=== PATIENT | female | born 1950 | race Caucasian/White ===

== ENCOUNTER 2019-08-20 16:07 | Inpatient (IN) ==
[~2019-08-20 16:07] MED LIST: VERSED ONE
--- NOTE | 2019-08-20 16:23 | PROVIDER DOCUMENTATION ---
HPI-Neurological Disorder - General Chief Complaint: Stroke-Like Symptoms Stated Complaint: STROKE LIKE SYMPTOMS Time Seen by Provider: 08/20/19 16:14 Source: patient, family, EMS Allergies/Adverse Reactions: Patient Allergies Allergy/AdvReac Type Severity Reaction Status Date / Time codeine Allergy Unknown Verified 08/20/19 16:07 Home Medications: Home Medication List Medication Instructions Recorded Confirmed Last Taken Type Acebutolol [Sectral] 1 cap PO DAILY 08/20/19 08/20/19 08/20/19 08:00 History Acetaminophen 2 tab PO Q4H PRN PRN 08/20/19 08/20/19 Unknown History Carbamazepine 1 tab PO TID 08/20/19 08/20/19 08/20/19 08:00 History Cholecalciferol (Vitamin D3) 50,000 unit PO DIRECTED 08/20/19 08/20/19 Unknown History [Vitamin D3] Clonazepam 1 tab PO BID PRN 08/20/19 08/20/19 Unknown History Escitalopram [Lexapro] 2 tab PO DAILY 08/20/19 08/20/19 08/20/19 08:00 History Gabapentin 2 cap PO DAILY 08/20/19 08/20/19 08/20/19 08:00 History Hydroxychloroquine [Plaquenil] 1.5 tab PO DAILY 08/20/19 08/20/19 08/20/19 08:00 History Levetiracetam 1 tab PO BID 08/20/19 08/20/19 08/20/19 08:00 History Melatonin 1 tab PO HS PRN 08/20/19 08/20/19 Unknown History Menthol/Zinc Oxide Ointment 1 dose TOP DAILY PRN 08/20/19 08/20/19 Unknown History [Calmoseptine Ointment] Morphine E.r. [Ms Contin] 1 tab PO BID 08/20/19 08/20/19 Unknown History Morphine Ir 1 tab PO Q4-6H PRN PRN 08/20/19 08/20/19 Unknown History Pantoprazole Sodium [Protonix] 40 mg PO DAILY 08/20/19 08/20/19 Unknown History - History of Present Illness-Neuro Nature of Presenting Problem: 69 yr old F, with hx of HTN, presenting with her daughter after sudden onset of left sided weakness, and focalized tremors to the left side of the face. Pt's recent hx includes a two week stay in the hospital for similar symptoms, with a 2 wk stint in rehab - pt was d/c on Aug 12, and had been doing well at home until today, when about an hour prior to arrival, suddenly loss use of the left side of her body, and started having twitching of the face. Pt did not lose conscious, no tongue biting, no slurred speech; she did complain of a headache, and has been complaining of headache for the past week. Headache Location: reports: frontal Severity: reports: moderate Onset/Duration: reports: 1 hour ago Timing: reports: still present Context: reports: seizure activity Character of Altered Mental Status: reports: N/A Any recent trauma/injury?: reports: none Character of Deficits: reports: new weakness, decreased ability to stand New weakness or altered sensation location:: reports: LUE, LLE, left facial Cognitive Baseline: alert, oriented x3 Gait Baseline: uses a cane Similar Symptoms Previously?: Yes Recently seen or treated by another doctor?: Yes - Seizure First time to have a seizure?: No Witnessed seizure?: Yes Preceding symptoms/context:: none Character of Seizure: reports: shaking in one area Post-ictal Symptoms: reports: headache Review of Systems - Adult - REVIEW OF SYSTEMS - ADULT Constitutional: reports: no symptoms reported Eyes: reports: no symptoms reported Ears, Nose, Mouth & Throat: reports: no symptoms reported Cardiovascular: reports: no symptoms reported Respiratory: reports: no symptoms reported Gastrointestinal: reports: no symptoms reported Genitourinary: reports: no symptoms reported Musculoskeletal: reports: see HPI Integumentary: reports: no symptoms reported Neurological: reports: see HPI Psychiatric: reports: no symptoms reported Endocrine: reports: no symptoms reported Past History - Adult - PAST MEDICAL HISTORY-ADULT Review of Records: reports: Old Records Reviewed, Nursing Assessment Review Cardiovascular: reports: HTN Neurological: reports: stroke deficits - PRIOR SURGERIES/PROCEDURES Surgical/Procedure History: reports: reviewed, not pertinent - FAMILY HISTORY Family History: reviewed, not pertinent - SOCIAL HISTORY Living Situation: family Physical Exam- Neurological - Physical Exam-Neuro Initial Vital Signs Reviewed: Yes General Appearance: alert, mild distress Eye Exam: bilateral eye: PERRL, EOMI HENMT: normocephalic/atraumatic, moist mucous membranes Head Injury: no evidence of injury Respiratory: chest non-tender, lungs clear Cardiovascular: regular rate, rhythm Abdominal Exam: normal bowel sounds, non tender, soft sales estimator Exam: PERRL. negative: abnormal speech, facial droop, tongue deviation to R, tongue deviation to L Coordination/Gait: other (pt unable to stand at the time of examination) Motor/Sensory: no sensory deficit, weak motor strength LUE Neurologic: focal weakness. negative: facial droop, sensory deficit Integumentary: normal color, normal turgor, warm/dry Psych/Mental Status: normal mood/affect, oriented x 3 - Glascow Coma Scale Best Eye Response: (4) open spontaneously Best Verbal Response: (5) oriented Best Motor Response: (6) obeys commands Progress - PLAN OF CARE/RESULTS Progress/Plan/Lab Results: Vital Signs - 8 hr 08/20/19 16:37 08/20/19 17:10 08/20/19 17:50 Temperature 97.9 F Pulse Rate 94 H 98 H 96 H Respiratory Rate 19 21 26 H Blood Pressure 211/132 201/106 179/124 O2 Sat by Pulse Oximetry 95 96 94 L 08/20/19 17:57 08/20/19 18:00 08/20/19 18:01 Temperature Pulse Rate 95 H 79 78 Respiratory Rate 27 H 18 18 Blood Pressure 235/145 140/106 O2 Sat by Pulse Oximetry 93 L 93 L 93 L 08/20/19 18:03 08/20/19 18:24 08/20/19 18:32 Temperature Pulse Rate 76 74 74 Respiratory Rate 21 14 16 Blood Pressure 190/94 203/121 208/108 O2 Sat by Pulse Oximetry 95 95 96 08/20/19 18:58 08/20/19 19:02 08/20/19 19:03 Temperature Pulse Rate 77 79 78 Respiratory Rate 23 17 14 Blood Pressure 199/124 212/192 203/130 O2 Sat by Pulse Oximetry 96 94 L 94 L 08/20/19 19:32 Temperature Pulse Rate 76 Respiratory Rate 12 Blood Pressure 190/130 O2 Sat by Pulse Oximetry 94 L Laboratory Results - last 24 hr 08/20/19 08/20/19 08/20/19 16:30 16:30 16:30 WBC 5.29 RBC 3.64 L Hgb 11.9 L Hct 37.4 MCV 102.7 H MCH 32.7 H MCHC 31.8 L RDW Std Deviation 17.6 H Plt Count 276 MPV 9.8 Immature Gran % (Auto) 0.0 Neut % (Auto) 74.3 Lymph % (Auto) 15.9 L [place] % (Auto) 7.9 Eos % (Auto) 1.5 Baso % (Auto) 0.4 Immature Gran # (Auto) 0.00 Neut # (Auto) 3.93 Lymph # (Auto) 0.84 L [place] # (Auto) 0.42 Eos # (Auto) 0.08 Baso # (Auto) 0.02 PT INR PTT (Act[place] FS) Sodium 139 Potassium 4.5 Chloride 100 Carbon Dioxide 28 Anion Gap 11 BUN 14 Creatinine 0.5 Estimated GFR/1.73 m2 > 60 BUN/Creatinine Ratio 28 Glucose 127 H Calculated Osmolality 280 Calcium 8.9 Total Bilirubin < 0.15 L AST 17 ALT 17 Alkaline Phosphatase 144 H Creatine Kinase 48 Troponin T High Sens Total Protein 6.1 L Albumin 3.5 Globulin 2.6 Albumin/Globulin Ratio 1.3 Plasma Lactate Urine Source Urine Color Urine Turbidity Urine pH Ur Specific [place] Urine Protein Ur Glucose (Stick) Ur Ketones (Stick) Urine Blood Urine Nitrite Urine Bilirubin Urobilinogen Dipstick Urine Leukocytes Urine WBC (Auto) Urine RBC (Auto) U Epithel Cells (Auto) Urine Bacteria (Auto) Urine Opiates Screen Ur Oxycodone Screen Ur Methadone, Qual Ur Barbiturates Screen Ur Phencyclidine Scrn Ur Amphetamines Screen U Benzodiazepines Scrn Urine Cocaine Screen U Cannabinoids Screen Plasma/Serum Ethyl Alc 08/20/19 08/20/19 08/20/19 16:30 16:30 16:48 WBC RBC Hgb Hct MCV MCH MCHC RDW Std Deviation Plt Count MPV Immature Gran % (Auto) Neut % (Auto) Lymph % (Auto) [place] % (Auto) Eos % (Auto) Baso % (Auto) Immature Gran # (Auto) Neut # (Auto) Lymph # (Auto) [place] # (Auto) Eos # (Auto) Baso # (Auto) PT 13.0 INR 0.97 PTT (Actin FS) 32.5 Sodium Potassium Chloride Carbon Dioxide Anion Gap BUN Creatinine Estimated GFR/1.73 m2 BUN/Creatinine Ratio Glucose Calculated Osmolality Calcium Total Bilirubin AST ALT Alkaline Phosphatase Creatine Kinase Troponin T High Sens 32 H Total Protein Albumin Globulin Albumin/Globulin Ratio Plasma Lactate 1.0 Urine Source Urine Color Urine Turbidity Urine pH Ur Specific [place] Urine Protein Ur Glucose (Stick) Ur Ketones (Stick) Urine Blood Urine Nitrite Urine Bilirubin Urobilinogen Dipstick Urine Leukocytes Urine WBC (Auto) Urine RBC (Auto) U Epithel Cells (Auto) Urine Bacteria (Auto) Urine Opiates Screen Ur Oxycodone Screen Ur Methadone, Qual Ur Barbiturates Screen Ur Phencyclidine Scrn Ur Amphetamines Screen U Benzodiazepines Scrn Urine Cocaine Screen U Cannabinoids Screen Plasma/Serum Ethyl Alc 08/20/19 08/20/19 16:50 16:50 WBC RBC Hgb Hct MCV MCH MCHC RDW Std Deviation Plt Count MPV Immature Gran % (Auto) Neut % (Auto) Lymph % (Auto) [place] % (Auto) Eos % (Auto) Baso % (Auto) Immature Gran # (Auto) Neut # (Auto) Lymph # (Auto) [place] # (Auto) Eos # (Auto) Baso # (Auto) PT INR PTT (Actin FS) Sodium Potassium Chloride Carbon Dioxide Anion Gap BUN Creatinine Estimated GFR/1.73 m2 BUN/Creatinine Ratio Glucose Calculated Osmolality Calcium Total Bilirubin AST ALT Alkaline Phosphatase Creatine Kinase Troponin T High Sens Total Protein Albumin Globulin Albumin/Globulin Ratio Plasma Lactate Urine Source CATH Urine Color YELLOW Urine Turbidity CLEAR Urine pH 7.0 Ur Specific [place] 1.012 Urine Protein TRACE A Ur Glucose (Stick) NEGATIVE Ur Ketones (Stick) NEGATIVE Urine Blood NEGATIVE Urine Nitrite NEGATIVE Urine Bilirubin NEGATIVE Urobilinogen Dipstick NORMAL Urine Leukocytes NEGATIVE Urine WBC (Auto) <10 Urine RBC (Auto) <10 U Epithel Cells (Auto) <10 Urine Bacteria (Auto) NEGATIVE Urine Opiates Screen PRESUMPTIVE POSITIVE A Ur Oxycodone Screen NONE DETECTED Ur Methadone, Qual NONE DETECTED Ur Barbiturates Screen NONE DETECTED Ur Phencyclidine Scrn NONE DETECTED Ur Amphetamines Screen NONE DETECTED U Benzodiazepines Scrn NONE DETECTED Urine Cocaine Screen NONE DETECTED U Cannabinoids Screen NONE DETECTED Plasma/Serum Ethyl Alc Orders Category Date Time Status [facility] Cath Insertion ORDERED Care 08/20/19 17:47 Active Nursing- Obtain EKG once Care 08/20/19 16:[address] HEAD W/O CONTRAST [CT] Stat Exams 08/20/19 16:15 Completed ALCOHOL BLOOD Stat Lab 08/20/19 16:30 Completed CBC WITH ELECTRONIC DIFF [HEME] Stat Lab 08/20/19 16:30 Completed CK PROFILE [SP CHEM] Stat Lab 08/20/19 16:30 Completed COMPREHENSIVE METABOLIC PANEL [CHEM] Stat Lab 08/20/19 16:30 Completed KEPPRA [FELIX] Stat Lab 08/20/19 16:30 Received LACTATE, PLASMA [CHEM] Stat Lab 08/20/19 16:48 Completed PT [PROTIME WITH INR] [COAG] Stat Lab 08/20/19 16:30 Completed PTT [COAG] Stat Lab 08/20/19 16:30 Completed TROPONIN T HIGH SENSITIVITY Stat Lab 08/20/19 16:30 Completed URINALYSIS W/POSS RFLX CULT [URINALYSIS] Stat Lab 08/20/19 16:50 Completed URINE DRUG SCREEN Stat Lab 08/20/19 16:50 Completed Acetaminophen [Tylenol] Med 08/20/19 20:24 Discontinued 1,000 mg PO NOW ONE Ketorolac [Toradol] Med 08/20/19 16:57 Discontinued 30 mg IV NOW ONE Labetalol Med 08/20/19 20:24 Discontinued 10 mg IV NOW ONE Labetalol Med 08/20/19 16:58 Discontinued 20 mg IV NOW ONE Metoclopramide [Reglan] Med 08/20/19 16:57 Discontinued 10 mg IV NOW ONE Midazolam [Versed] Med 08/20/19 16:02 Discontinued 2 mg .SEE ORDER NOW ONE Ondansetron [Zofran] Med 08/20/19 18:49 Discontinued 8 mg IV NOW ONE Prochlorperazine [Compazine] Med 08/20/19 19:18 Discontinued 10 mg IV NOW ONE EKG [EKG] Stat Ther 08/20/19 16:44 Draft Pt's lab evaluation and imaging are mostly unremarkable - there are no acute abnormalities; the pt's BP has not responded to labetalol or pain control, no r has her headache improved; given her recent hx and uncontrolled BP, pt will at least benefit from overnight control of the hypertensive urgency; spoke with the hospitalist who agrees to admit; pt and family made aware of the plan. Result Diagrams: 08/20/19 16:30 08/20/19 16:30 - EKG 1 Time of EKG reading by physician:: 19:00 EKG Read and Signed by:: Boy Seymour EKG Interpretation (*Must complete 3 of following elements*): Abnormal Rate: 75 Rhythm: sinus rhythm [place]: normal QRS: normal NM Interval: normal ST Wave: non-specific ST changes (t wave inversions, V1. V2, V3) - CT/MRI 1 CT Study: Head Impression: See EMR Report CT Results: no acute intracranial abnormalities - CONSULTS/PCP/HOSPITALIST Notification #1 *Consult/PCP/Hospitalist*: Dr. Melissa Time Discussed: 19:00 Consult Disposition: Admit Departure - Departure Date of Disposition Decision: 08/20/19 Time of Disposition Decision: 20:34 DIAGNOSIS: Hypertensive urgency Disposition: ADMITTED INPATIENT 09 Certified Medical Emergency: Emergent Condition: Stable Referrals and Follow-Ups: None,PCP [Primary Care Provider] - - Critical Care Note This patient required my direct & personal management of CC.: No Attestation - Physician/ TESFAYE Attestation Patient care was provided by Advanced Practice Provider:: No The physician spent face to face time with patient:: Yes Advanced Practice Provider documentation review:: Supervising physician onsite and consulted in the evaluation and care of this patient. The physician did have a face to face encounter with the patient.
[2019-08-20] MEDS ORDERED: TORADOL IV ONE (16:57)
[2019-08-20] MEDS ORDERED: REGLAN IV ONE (16:57)
[2019-08-20] MEDS ORDERED: LABETALOL IV ONE ×2 (16:58→20:24)
[2019-08-20 17:03] LABS: BASO# 0.02 X1000 (0.0-0.2); BASO% 0.4 % (0.0-0.8); EOS# 0.08 X1000 (0.0-0.7); EOS% 1.5 % (0.0-10.0); HEMATOCRIT 37.4 % (37.0-47.0); HEMOGLOBIN 11.9 g/dL (12.0-16.0); LYMPH# 0.84 X1000 (1.2-3.4); LYMPH% 15.9 % (20.5-51.1); MCH 32.7 PG (27-31); MCHC 31.8 g/dL (33-37); MCV 102.7 FL (81-99); MONO# 0.42 X1000 (0.11-0.59); MONO% 7.9 % (1.7-9.3); MPV 9.8 FL (7.4-10.4); NEUT# 3.93 X1000 (1.4-6.5); NEUT% 74.3 % (42.2-75.2); PLT 276 X1000 (130-400); RBC 3.64 XMIL (4.2-5.4); RDW 17.6 % (11.5-14.5); WBC 5.29 X1000 (4.8-10.8)
[2019-08-20 17:09] LABS: INR 0.97
[2019-08-20 17:10] LABS: PTT 32.5 Seconds (22.3-41.8)
[2019-08-20 17:16] LABS: URINE SOURCE CATH
[2019-08-20 17:21] LABS: BILIRUBIN URINE NEGATIVE (NEGATIVE); BLOOD URINE NEGATIVE (NEGATIVE); COLOR YELLOW; GLUCOSE URINE NEGATIVE (NEGATIVE); KETONE URINE NEGATIVE (NEGATIVE); LEUKOCYTES URINE NEGATIVE (NEGATIVE); NITRITE URINE NEGATIVE (NEGATIVE); PROTEIN URINE TRACE mg/dL (NEGATIVE); SP GRAVITY URINE 1.012; TURBIDITY URINE CLEAR (CLEAR); UR EPITHELIAL CELLS <10 /HPF (<10); URINE BACTERIA NEGATIVE /HPF; URINE RBC <10 /HPF (<10); URINE WBC <10 /HPF (<10); UROBILINOGEN URINE NORMAL (NORMAL)
[2019-08-20 17:24] LABS: AGAP 11; ALB/GLOB RATIO 1.3; ALBUMIN 3.5 g/dL (3.5-5.0); ALKALINE PHOSPHATASE 144 U/L (32-104); BUN 14 mg/dL (8-22); CALCIUM 8.9 mg/dL (8.8-10.2); CHLORIDE 100 mmol/L (98-107); CK PROFILE 48 U/L (24-173); COSMO 280; CREATININE 0.5 mg/dL (0.5-0.9); ESTIMATED GFR > 60; GLUCOSE 127 mg/dL (70-104); GOT 17 U/L (10-30); GPT 17 U/L (10-36); POTASSIUM 4.5 mmol/L (3.5-5.1); SODIUM 139 mmol/L (136-145); TCO2 28 mmol/L (25-35); TOTAL BILIRUBIN < 0.15 mg/dL (0.20-1.00); TOTAL PROTEIN 6.1 g/dL (6.3-8.3)
[2019-08-20 17:43] LABS: UR AMPHETAMINES QUAL NONE DETECTED (NONE DETECT); UR BARBITUATES QUAL NONE DETECTED (NONE DETECT); UR BENZODIAZEPIN QUAL NONE DETECTED (NONE DETECT); UR CANNABINOIDS QUAL NONE DETECTED (NONE DETECT); UR COCAINE QUAL NONE DETECTED (NONE DETECT); UR METHADONE QUAL NONE DETECTED (NONE DETECT); UR OPIATES QUAL PRESUMPTIVE POSITIVE (NONE DETECT); UR OXYCODONE QUAL NONE DETECTED (NONE DETECT); UR PCP QUAL NONE DETECTED (NONE DETECT)
--- NOTE | 2019-08-20 18:04 | Diag Imaging Result Doc PS360 ---
CT HEAD W/O CONTRAST - 08/20/2019 INDICATION: Left sided weakness and tremors COMPARISON: None FINDINGS: There is mild periventricular white matter chronic microvascular ischemia. The ventricles and sulci are normal in size and contour. No intracranial mass or hemorrhage. There is advanced vascular calcification of the carotid siphons bilaterally indicating arterial disease. The sinuses are clear. IMPRESSION: No acute process. This exam was performed using automated exposure control, adjustment of mA or kV according to patient size, and/or use of iterative reconstruction technique Electronically signed by Reg Lomeli 08/20/2019 6:01 PM
--- NOTE | 2019-08-20 18:25 | EKG Report ---
Test Performed on : 08/20/2019 6:20:51 PM Test Reason : Seizure Activity Blood Pressure : / mmHG Vent. Rate : 075 BPM Atrial Rate : 075 BPM P-R Int : 160 ms QRS Dur : 090 ms QT Int : 414 ms P-R-T Axes : 054 041 -18 degrees QTc Int : 462 ms Normal sinus rhythm. T wave abnormality, consider anterior ischemia Abnormal ECG No previous ECGs available Unconfirmed Result
[2019-08-20] MEDS ORDERED: ZOFRAN IV ONE (18:49)
[2019-08-20] MEDS ORDERED: COMPAZINE IV ONE (19:18)
[2019-08-20] MEDS ORDERED: TYLENOL PO ONE (20:24)
[2019-08-20] MEDS ORDERED: LABETALOL IV PRN (21:50)
[2019-08-20] MEDS ORDERED: CARDENE 40 MG/NS 40 MG/200 ML PIGGYBACK IV SCH (22:00)
[2019-08-20] MEDS ORDERED: MELATONIN PO PRN (22:14)
[2019-08-20] MEDS ORDERED: KLONOPIN PO PRN (22:14)
[2019-08-20] MEDS ORDERED: LIPITOR PO SCH (22:15)
[2019-08-21] MEDS: TEGRETOL PO SCH ×3 (00:25→21:17)
[2019-08-21] MEDS: COREG PO SCH ×2 (00:25→08:29)
[2019-08-21] MEDS: KEPPRA PO SCH ×2 (00:25→08:30)
[2019-08-21 05:44] LABS: HEMOGLOBIN A1C 4.7 % (4.8-6.0)
[2019-08-21 05:53] LABS: CHOLESTEROL 178 mg/dL (0-200); HDL 90 mg/dL (45-65); LDL 76 mg/dL; TRIGLYCERIDES 59 mg/dL (35-135); VLDL 12 mg/dL
[2019-08-21] MEDS: PROTONIX PO SCH (07:25)
[2019-08-21] MEDS ORDERED: NICODERM PATCH TD ONE (07:31)
[2019-08-21] MEDS: LOVENOX SUBQ SCH (08:28)
[2019-08-21] MEDS: PLAQUENIL PO SCH (08:29)
[2019-08-21] MEDS ORDERED: LEXAPRO PO SCH (09:00)
[2019-08-21] MEDS ORDERED: ASPIRIN PO SCH (09:00)
[2019-08-21] MEDS ORDERED: NEURONTIN PO SCH (09:00)
--- NOTE | 2019-08-21 09:34 | HISTORY AND PHYSICAL ---
CHIEF COMPLAINT: Left-sided weakness. HISTORY OF PRESENT ILLNESS: Ms. Lore Lawton is a 69-year-old female who has a history of hypertension, and presents to the hospital because of left-sided weakness of recent onset. The patient also describes having slurred speech, dizziness, as well as headaches. The patient also gives a history of having seizure activity prior to presentation. She is not exactly sure how long the seizure activity lasted. She indicates that her mom did witness the seizures. When she presented to the hospital, she had a CT scan of the brain done, which was unremarkable for any acute lesions. She was noted to have a markedly elevated blood pressure, which was as high as 220/126. The patient will now be admitted to the hospital for further management. PAST MEDICAL HISTORY: Hypertension, lupus, as well as Sjogren's syndrome. SOCIAL HISTORY: The patient smokes cigarettes. No alcohol or drug use. PAST SURGICAL HISTORY: She has had section, cholecystectomy, tonsillectomy, hysterectomy, as well as right knee surgery. ALLERGIES: She is allergic to codeine. FAMILY HISTORY: Positive for hypertension. MEDICATIONS: Include the following: Acebutolol 1 capsule daily, acetaminophen 2 tablets every 4 hours p.r.n., Calmoseptine ointment as directed, morphine 50 mg p.o. twice a day, morphine IR 15 mg every 4 to 6 hours p.r.n., carbamazepine 200 mg p.o. 3 times a day, vitamin D 50,000 units p.o. as directed, clonazepam 0.5 mg p.o. twice a day, escitalopram 10 mg 2 tablets daily, gabapentin 300 mg 2 caps daily, hydroxychloroquine 200 mg 1.5 tablets daily, Keppra 500 mg p.o. twice a day, melatonin 3 mg p.o. daily at bedtime, pantoprazole 40 mg p.o. daily. REVIEW OF SYSTEMS: Constitutional: Has fever. PARK MAINTENANCE TECHNICIAN: Headaches. Eyes: Blurred vision. ENT: No sore throat or hearing loss. Cardiovascular: No chest pain. Respiratory: The patient has shortness of breath. GI: Has some nausea with vomiting. No diarrhea. Has abdominal pain. : Has dysuria as well as urinary retention. Musculoskeletal: Has skin lesions. Hematology: No bleeding problems. Musculoskeletal: Has joint pains. Endocrinology: No thyroid disease or diabetes. Allergy/Immunology: Has symptoms of allergic rhinitis. PHYSICAL EXAMINATION: VITAL SIGNS: Pulse 71, respirations 18, blood pressure 214/106, oxygen saturation is 94%, temperature is 97.9 degrees. HEENT: She is atraumatic, normocephalic. She is anicteric. Pupils equal, poorly reactive to light. Extraocular movements intact. No oral lesions noted. NECK: No lymphadenopathy or thyromegaly. CARDIOVASCULAR: S1, S2. RESPIRATORY: Has evidence of good air entry bilaterally. ABDOMEN: Soft, nontender. No masses felt. EXTREMITIES: No evidence of edema. CENTRAL NERVOUS SYSTEM: The patient is awake, alert, well oriented. She does have left hemiparesis. IMAGING AND LABORATORY DATA: WBCs 5.29, hematocrit is 37.4, with a platelet count of 276,000. INR is 0.97. Sodium is 139, potassium 4.5, chloride is 100, bicarb is 28, BUN is 14, creatinine 0.5. CT scan of the head: No acute processes was noted. EKG shows normal sinus rhythm with T- wave abnormalities, consider anterior ischemia. ASSESSMENT AND PLAN: 1. Acute cerebrovascular accident with left hemiparesis. Will maintain the patient on aspirin as well as statin. Obtain an MRI of the brain, as well as an MRA of the head and neck. Will get a 2-dimensional echocardiogram of the heart. Recommend physical therapy, occupational therapy, speech therapy, as well as a swallow evaluation. Check lipid panel as well as a hemoglobin A1c level. Recommend tobacco use cessation, as well as Lovenox 40 mg subcutaneously once a day. Check a lipid panel. The patient needs stroke education. Consider Neurology evaluation. 2. Seizure disorder. Maintain the patient on seizure precaution. Continue antiepileptic drugs, specifically Keppra as well as carbamazepine and also Neurontin. 3. Hypertension. Allow for permissive hypertension in light of stroke. 4. History of lupus. Continue Plaquenil. 5. History of Sjogren's syndrome. Aware. Treat dry eyes and dry mouth symptomatically. 6. Urinary retention. Check urinalysis and urine culture. Place Carter temporarily. Consult with Urology. 7. Tobacco use history. Recommend nicotine patch. 8. Anemia. Check iron studies, B12, folate level, stool for occult blood. 9. Deep vein thrombosis prophylaxis. Lovenox. 10. Gastrointestinal prophylaxis. Proton pump inhibitor. cc: Madhu Melissa MD
--- NOTE | 2019-08-21 09:54 | Diag Imaging Result Doc PS360 ---
EXAM: MRI BRAIN W/WO CONTRAST 08/20/2019 HISTORY: r/o cva TECHNIQUE: T1 sagittal, axial and post gadolinium-enhanced axial with coronal reformation, T2, FLAIR, DWI axial and coronal gradient echo. COMMENT: There is extensive periventricular T2-weighted hyperintensity with some punctate and patchy areas of increased T2-weighted signal intensity particularly in the right hung radiata region. There is also increased T2-weighted signal intensity posteriorly in the right thalamus. There is considerable motion artifact on the T1-weighted images. There is no evidence of restricted diffusion. No evidence of mass effect bleed or abnormal extra-axial fluid collection is present. There is no evidence of abnormal gadolinium enhancement. IMPRESSION: Extensive chronic microvascular change. No evidence of acute disease. Electronically signed by Michael Rivera 08/21/2019 9:52 AM
--- NOTE | 2019-08-21 10:29 | Diag Imaging Result Doc PS360 ---
EXAM: MRA NECK W/O CONT 08/20/2019 HISTORY: r/o cva TECHNIQUE: 3-D [id number] COMMENT: There is no evidence of significant stenosis in the cervical common or internal carotid arteries. Both vertebral arteries appear to be patent. The basilar artery is normal in appearance. IMPRESSION: No definite abnormality. Electronically signed by Michael Rivera 08/21/2019 10:27 AM
--- NOTE | 2019-08-21 10:31 | Diag Imaging Result Doc PS360 ---
EXAM: MRA BRAIN W/O CONTRAST 08/20/2019 HISTORY: r/o cva TECHNIQUE: 3-D [id number] COMMENT: There is some motion artifact. There is no evidence of major branch occlusion. No evidence of aneurysm is present. IMPRESSION: No definite abnormality. Electronically signed by Michael Rivera 08/21/2019 10:28 AM
[2019-08-21] MEDS ORDERED: ZOFRAN IV PRN (11:36)
[2019-08-21] MEDS ORDERED: LABETALOL IV PRN (11:41)
[2019-08-21] MEDS ORDERED: KEPPRA 500 MG in NS 100 ML IV SCH (11:45)
[2019-08-21] MEDS ORDERED: VASOTEC IV SCH (11:45)
--- NOTE | 2019-08-21 12:02 | PROGRESS NOTE ---
DATE: 08/21/2019 SUBJECTIVE: Patient has no major complaints, but she is not very responsive. She is moving her extremities spontaneously. OBJECTIVE: Vital signs: Blood pressure 139/77, heart rate 73, respiratory rate 18, temperature was 98.6 degrees, but she is on a Bari Hugger. Her saturations were 88 92%, but she is on at least a couple liters of oxygen. PROBLEM LIST: 1. Transient ischemic attack versus reversible encephalopathy syndrome. She has an atypical seizure disorder which has been worked up in [place]. We are trying to get old records. Keep her on aspirin. Her MRI is negative for stroke, so I do not think this is a stroke. MRA is negative, so I am not really sure what is causing her weakness. Apparently, she has weakness associated with seizures, so I have consulted Neurology. We are going to get an EEG. Continue her Keppra, which she has had levels checked. 2. Uncontrolled hypertension. Unclear etiology. Right now, her blood pressure is okay, but we will continue medications and follow. 3. Systemic lupus erythematosus. She is on hydroxychloroquine. She also has a history of Sjogren's. We will continue to monitor closely. We will resume blood pressure medications when stable. Right now, she is not awake enough to take p.o., but hopefully that will change, and we will continue to monitor. 4. The family is requesting a cardiology consult. I think they are medically inclined as far as nursing. They were concerned because her troponin was elevated, but her troponin is not elevated, at least by our criteria here, so I am not quite sure what to say about that, but we will continue to monitor her closely. cc: Rian Grimes MD
[2019-08-21] MEDS: NITROGLYCERIN TOP SCH ×3 (12:22→23:01)
--- NOTE | 2019-08-21 14:33 | CARDIOLOGY CONSULTATION ---
DATE: 08/21/2019 REASON FOR CONSULTATION: Ms. Lawton is a 69-year-old, lady with multiple medical problems. Cardiology was consulted for blood pressure control. HISTORY OF PRESENT ILLNESS: Ms. Lawton is a 69-year-old lady, who has history of hypertension, seizure disorder. Complained of left-sided weakness. The patient has described some speech deficit as well. Has had a long-standing seizure disorder. Was in [facility] in June 2019 where she was evaluated and was admitted and discharged with the following diagnoses: 1. Encephalopathy. 2. Seizure disorder. 3. Ulcerative colitis. 4. History of SLE. 5. Anxiety disorder. 6. Urinary tract infections in the past. 7. Multiple pulmonary nodules. The patient was evaluated by Neurology and she was discharged home on acebutolol 200 mg a day, alendronate, carbamazepine, clonazepam, Lexapro, omeprazole, gabapentin, hydroxychloroquine, Keppra, Lorcet and melatonin. When she presented to the hospital, she was noted to have elevated blood pressures. Blood pressures at home had gone up to 220/126. She has undergone EEG here and was given IV ANGELA inhibitors for blood pressure control. So, blood pressures are better with that. She denies any chest pain. Main complaints have been with seizure-like symptoms which she had in the recent past. REVIEW OF SYSTEM: A 14-point review of systems was done. GI System: There is no history of nausea, vomiting or diarrhea. Cardiovascular System: Denies any chest pain. There are no palpitations. System: There is no dysuria or hematuria. PAST MEDICAL HISTORY: 1. Sjogren syndrome. 2. Lupus. 3. Ulcerative colitis. 4. Chronic pain. 5. Depression. 6. Hypertension. 7. Recent admission in [facility] with encephalopathy and seizure disorder. She also has had urinary tract infections in the past and multiple pulmonary nodules. She has been evaluated by Neurology at [facility]. Please see detailed enclosed records. PHYSICAL EXAMINATION: Vital Signs: On examination, blood pressure today was 147/65. Cardiovascular System: First and second heart sounds were heard. There was no S3 gallop. Respiratory System: Normal air entry. There are no crepitations or rhonchi. Abdomen: Soft. Central nervous system: Alert, was moving all 4 extremities. Detailed central nervous system examination not performed. ASSESSMENT AND PLAN: 1. Ms. Lawton has history of hypertension, lupus, Sjogren's, chronic pain syndrome, history of hypertension. For hypertension, we would recommend continuing with her acebutolol. She had a good response with intravenous captopril. We will start her on lisinopril 10 mg a day. 2. We will also make sure that there is no renal artery stenosis. Given recent accelerated hypertension, we will get renal duplex done. 3. We will get an echocardiogram to assess cardiac and valvular function. Thank you for the consult. We will follow hospital course. cc: Kana Napier MD
[2019-08-21] MEDS: SECTRAL PO SCH (17:32)
[2019-08-21] MEDS: PRINIVIL PO SCH (17:32)
--- NOTE | 2019-08-21 20:57 | Diag Imaging Result Doc PS360 ---
EXAM: CT THORAX W/O CONTRAST 08/21/2019 HISTORY: decreased sats TECHNIQUE: This exam was performed using automated exposure control, adjustment of mA or kV according to patient size, and/or use of iterative reconstruction technique. COMMENT: There are bilateral pleural effusions. There is coarse interstitial opacity in both lower lobes. There is no evidence of significant adenopathy. There is extensive coronary calcification. There are degenerative disc changes throughout the thoracic spine. No evidence of acute bony abnormality is present. IMPRESSION: Mild pulmonary edema and bilateral pleural effusions. Electronically signed by Michael Rivera 08/21/2019 8:53 PM
[2019-08-21] MEDS ORDERED: KEPPRA PO SCH (21:00)
[2019-08-21] MEDS: MS CONTIN PO SCH (21:16)
[2019-08-21] MEDS: KEPPRA 1,000 MG/NS 1,000 MG/100 ML IVPB IV SCH (21:16)
--- NOTE | 2019-08-21 21:24 | EEG REPORT ---
DATE: 08/21/2019 REFERRING PHYSICIAN: Rian Grimes MD TI[employer] BEADER MAKER: David Kelly BACKGROUND INFORMATION/TECHNIQUE: This is a digitally recorded portable routine EEG with video. HISTORY: A 69-year-old female patient with acute onset of left-sided weakness, slurred speech, dizziness, and headache. Mom witnessed a seizure. Blood pressure was elevated. EEG is ordered to detect evidence of seizures. MEDICATIONS: Include clonazepam, Lexapro. EEG FINDINGS: A posterior dominant alpha rhythm is not seen. The background consists of theta, delta slowing with some intermixed faster frequencies. Nearly continuous focal slowing is seen in the right hemisphere. Occasional to intermittent epileptiform discharges are also seen in the right temporal head region with maximum at T4. No seizures. Hyperventilation is not performed. Photic stimulation does not alter the record. No definite drowsiness patterns. Stage N2 sleep is not seen. EKG demonstrates regular intervals when the lead is interpretable. IMPRESSION AND CLINICAL CORRELATION: Abnormal routine EEG due to: 1. Epileptiform discharges maximal in the right mid temporal head region indicative of focal cortical irritability in this area. 2. Slowing within the right hemisphere, which may be a postictal phenomenon. Structural lesion would also be a consideration. 3. Mild to moderate generalized slowing indicative of a mild to moderate nonspecific encephalopathy. cc: MD Rian Valdes MD [facility]
[2019-08-21] MEDS: KLONOPIN PO PRN (21:31)
[2019-08-21] MEDS: MORPHINE IR PO PRN (22:17)
--- NOTE | 2019-08-21 22:54 | NEUROLOGY CONSULTATION ---
DATE: 08/21/2019 REASON FOR CONSULT: Seizure/stroke. HISTORY OF PRESENT ILLNESS: This is a 69-year-old female with history of recent-onset seizures, hypertension, lupus and Sjogren syndrome. She was admitted yesterday after she began having some confusion, and her son noticed some seizure activity with generalized shaking. I am not certain of further details regarding seizure description. There is also report of her having slurred speech, dizziness and headaches. Apparently she has had some left-sided weakness following the seizures. In June of 2019, just last month she presented to [facility] with similar symptoms of seizures. She was hypertensive. She was ultimately transferred to [place]. I believe we have requested records. Currently she is taking levetiracetam 500 mg b.i.d., as well as carbamazepine 200 mg 3 times a day, and to my knowledge she has not missed doses. Of note, she also takes clonazepam 0.5 mg b.i.d., gabapentin 600 mg a day. She was discharged to a rehab facility for 10 days and has subsequently been staying with her son. She was doing relatively well until the day of admission, when she began having more evidence of seizures and confusion. Blood pressure on arrival was 211/132. Head CT did not show acute findings. MRI of the brain also did not show acute findings, but did show extensive chronic microvascular ischemic change. MRA of the head and neck were unremarkable. PAST MEDICAL HISTORY: Includes hypertension, lupus, Sjogren syndrome, new-onset seizures 06/2019. FAMILY HISTORY: Positive for hypertension. No history of seizures. SOCIAL HISTORY: She is a current smoker. No alcohol or drugs. ALLERGIES: Listed to codeine in the chart. MEDICATIONS: Home medications were reviewed in the chart and include levetiracetam 500 mg p.o. b.i.d.; carbamazepine 200 mg p.o. t.i.d.; she also takes gabapentin 600 mg daily; clonazepam 0.5 mg p.o. b.i.d. amongst others. REVIEW OF SYSTEMS: Balance of 12 conducted and otherwise negative except that detailed in the HPI. PHYSICAL EXAMINATION: Vital signs: Afebrile. Blood pressure was above 200/100 on admission, current 122/63. Pulse 70s, respirations 16, 96% on room air. General: Ms. Lawton is supine in bed with head of bed elevated. She appears asleep. She arouses with loud voice and tactile stimulation. She is a bit groggy initially, but with more vigorous stimulation appears to more readily maintain attention. She knows where she is. She knows a distant family member. She was not oriented to timing. She followed some simple commands. HEENT: Pupils are equal, round and reactive. Gaze is conjugate. She had full lateral eye movements. Face was symmetric with equal activation. She blinks to threats. She can hear. Tongue was midline. Neurologic: Power was preserved in the limbs with the exception of the left upper extremity, grading 4-/5 of the deltoid and 4/5 to 4-/5 of the triceps, 4/5 of the biceps. Weak fiber optics engineer. She seemed to move her bilateral lower extremities equally. Reflexes were diminished throughout, symmetric. No clonus. Plantar response was silent. She responded to noxious stimuli in all extremities equally. DIAGNOSTIC DATA: Head CT was personally reviewed. No acute findings. MRI of the brain was also personally reviewed. No acute findings. There is extensive chronic microvascular ischemic change. There was no abnormal postcontrast enhancement. MRA of the head and neck were unremarkable. Routine EEG was personally reviewed, showing mild to moderate generalized slowing, right hemispheric slowing and occasional right temporal epileptiform discharges. No seizures. LABORATORY DATA: Normal white count, BUN and creatinine. Toxicology presumptive positive for opiates. Negative serum ethyl alcohol. ASSESSMENT AND PLAN: 1. Recent-onset seizure disorder. This appears to be focal onset within the right temporal head region. Imaging has been negative. Keppra level has been sent, but it appears as far as we know that she has been taking her medications as prescribed. I will increase her Keppra dose to 1 g b.i.d. Continue carbamazepine, current dose. Her focal weakness following recurrent seizure is likely a postictal Mickey paralysis, though she is still having occasional intermittent epileptiform discharges in the region. Continue seizure precautions. 2. Accelerated hypertension of uncertain etiology. Cardiology is working this up. There is plan for renal ultrasound as well. I did not see evidence of posterior reversible encephalopathy syndrome on imaging. Thank you for the consultation. Will follow. cc: Natali Comer MD
[2019-08-22] MEDS: MORPHINE IR PO PRN (02:05)
[2019-08-22] MEDS: NITROGLYCERIN TOP SCH ×2 (06:07→15:09)
[2019-08-22] MEDS: PROTONIX PO SCH (06:07)
[2019-08-22 07:18] LABS: BASO# 0.01 X1000 (0.0-0.2); BASO% 0.2 % (0.0-0.8); EOS% 1.9 % (0.0-10.0); HEMATOCRIT 35.6 % (37.0-47.0); HEMOGLOBIN 11.5 g/dL (12.0-16.0); LYMPH# 1.58 X1000 (1.2-3.4); LYMPH% 30.6 % (20.5-51.1); MCHC 32.3 g/dL (33-37); MCV 102.3 FL (81-99); MONO# 0.52 X1000 (0.11-0.59); MONO% 10.1 % (1.7-9.3); MPV 9.5 FL (7.4-10.4); NEUT# 2.95 X1000 (1.4-6.5); NEUT% 57.2 % (42.2-75.2); PLT 282 X1000 (130-400); RBC 3.48 XMIL (4.2-5.4); RDW 16.8 % (11.5-14.5); WBC 5.16 X1000 (4.8-10.8)
[2019-08-22 07:39] LABS: HEMOGLOBIN A1C 4.6 % (4.8-6.0)
[2019-08-22 07:54] LABS: IRON SATURATION 29 %; TIBC 245 ug/dL; TOTAL IRON 72 ug/dL (49-151); UNBOUND IRON 173 ug/dL (112-346)
[2019-08-22] MEDS ORDERED: MORPHINE IR PO PRN (07:55)
[2019-08-22] MEDS ORDERED: LASIX PO ONE (07:57)
[2019-08-22 08:10] LABS: FERRITIN 149 ng/mL (13-150)
[2019-08-22] MEDS: ASPIRIN EC PO SCH (08:29)
[2019-08-22] MEDS: MS CONTIN PO SCH ×2 (08:29→20:30)
[2019-08-22] MEDS: KEPPRA 1,000 MG/NS 1,000 MG/100 ML IVPB IV SCH ×2 (08:30→20:30)
[2019-08-22] MEDS: LEXAPRO PO SCH (08:30)
[2019-08-22] MEDS: TEGRETOL PO SCH ×3 (08:31→20:31)
[2019-08-22] MEDS: PLAQUENIL PO SCH (08:31)
[2019-08-22] MEDS: PRINIVIL PO SCH (08:31)
[2019-08-22] MEDS: LOVENOX SUBQ SCH (08:31)
[2019-08-22] MEDS: SECTRAL PO SCH (08:31)
[2019-08-22 08:32] LABS: AGAP 9; BUN 7 mg/dL (8-22); CHLORIDE 95 mmol/L (98-107); COSMO 264; CREATININE 0.4 mg/dL (0.5-0.9); ESTIMATED GFR > 60; GLUCOSE 90 mg/dL (70-104); POTASSIUM 4.2 mmol/L (3.5-5.1); SODIUM 133 mmol/L (136-145); TCO2 29 mmol/L (25-35)
[2019-08-22] MEDS ORDERED: ASPIRIN PR SCH (09:00)
--- NOTE | 2019-08-22 09:51 | PROGRESS NOTE ---
DATE: 08/22/2019 INTERVAL HISTORY: No acute events overnight. SUBJECTIVE: Ms. Lawton denies any complaints. She told me that she came to the hospital because of seizure. She states that she is experiencing headache on the right temporal side. She says this was first-time seizure episode though. VITALS: Temperature 98.6 degrees pulse 74, respiratory 18, blood pressure 150/89 saturating 96% on 2 L nasal cannula. PHYSICAL EXAMINATION: She is not in any acute distress.HEENT: Oral cavity is moist. Lungs: She has decreased air entry bilateral infrascapular region. Cardiovascular: S1, S2 normal. No murmur, rub, or gallop. Abdomen: Soft, scaphoid nontender. Extremity: No lower extremity edema. She has a right-sided back nitroglycerin patch. INPUT AND OUTPUT: Suggests it was -3.3 L on presentation. LABS: Suggestive of macrocytosis, anemia, normal platelet count. Her electrolyte panel is pending microbiology no positive data chest CT performed yesterday evening for decrease oxygen saturation had mild pulmonary edema and bilateral pleural effusion. There were also some changes related to COPD though it was of poor quality CT scan. ASSESSMENT AND PLAN: 1. Acute encephalopathy on presentation likely due to focal onset seizure, now resolved. She appears alert and oriented and has been engaging in conversation meaningfully. She does have intermittent episodes of confusion without any focality on examination. Continue to monitor her mental status. Neurology on board. 2. New onset focal seizure. Continue home carbamazepine and her Keppra dose has been increased. I will continue her on seizure precautions. Currently, on my examination, she is leaning towards her left, though she is able to move all extremities spontaneously. She was sleepy and did not participate adequately to allow proper motor examination. 3. History of systemic lupus erythematosus and Sjgren's syndrome. I will continue her home hydroxychloroquine. 4. Essential hypertension continue home Acebutolol, lisinopril and nitroglycerin. Cardiology team on board. 5. History of chronic pain. I could not confirm if she was actually taking morphine at home on prescription drug monitoring program. I will continue her on shorter-acting morphine. I will closely monitor her respiratory status. The patient could not provide me the reason why she was taking morphine. She states she was taking it before because of seizure, which I do not agree. 6. Others. Follow-up ultrasound duplex renal artery to rule out renal artery stenosis for her uncontrolled hypertension, and echocardiogram. I will transfer patient to [facility]. Plan of care discussed with patient and the nursing team. cc: Narayan Briggs MD
--- NOTE | 2019-08-22 11:25 | Diag Imaging Result Doc PS360 ---
EXAM: US DUPLEX RENAL ARTY/VEIN LMTD 08/22/2019 HISTORY: hypertension, rule out renal artery stenosis TECHNIQUE: Renal ultrasound with arterial Doppler COMMENT: The right kidney is 10.2 x 5.1 x 4.2 cm. There is no evidence of mass or hydronephrosis. The left kidney is 8.2 x 5 x 5.2 cm also without evidence of mass or hydronephrosis. Due to the patient's condition and inability to suspend respiration or tolerate positioning, no diagnostic Doppler information was available. IMPRESSION: No evidence of obstruction or mass. Nondiagnostic vascular study. Electronically signed by Michael Rivera 08/22/2019 11:23 AM
--- NOTE | 2019-08-22 11:57 | CONSULTATION ---
DATE OF CONSULTATION: 08/22/2019 CONSULTING PHYSICIAN: Dr. Melissa. REASON FOR CONSULTATION: Consultation for urinary retention. HISTORY OF PRESENT ILLNESS: A 69-year-old female with a previous urologic history of recurrent UTIs, who was admitted secondary to seizure. Per the patient and her son, when she was having the seizure, she had an accident and wet the bed. She was catheterized. I was consulted for urinary retention. The patient states that prior to the seizure, she was voiding normally. She denies nocturia, urge incontinence, sensation of incomplete emptying. She has had recurrent UTIs. She typically gets 2 to 3 a year and has had associated dysuria and gross hematuria with those but none if she does not have a UTI. She is anxious about having the Carter catheter removed. She thinks she could void normally. She sees a mental health technician in [place]. She has not seen a urologist. PAST MEDICAL HISTORY: Lupus, Sjogren's syndrome, hypertension, recurrent UTIs. PAST SURGICAL HISTORY: Cholecystectomy, hysterectomy, section, tonsillectomy, right knee surgery. ALLERGIES: Codeine. MEDICATIONS: Pantoprazole, Keppra, melatonin, hydroxychloroquine, gabapentin, Lexapro, Klonopin, Tegretol, morphine, acetaminophen, acebutolol. FAMILY HISTORY: Negative for malignancies. SOCIAL HISTORY: She is a smoker. She denies alcohol or illicit drug use. REVIEW OF SYSTEMS: Reviewed and 12 systems negative except as per the HPI. PHYSICAL EXAMINATION: T 99, P 72, BP 150/82. General: No acute distress. Cachectic-appearing female. HEENT: Normocephalic, atraumatic. Trachea is without deformities. Cardiovascular: Regular rhythm. Pulmonary: Bilateral breath sounds. Abdomen: Scaphoid, nontender to palpation. Bladder is nontender to palpation. : Normal external female genitalia. Atrophic vaginitis. Carter catheter is in place, draining straw-colored urine. Back: No CVA tenderness. Dermatologic: No obvious skin rashes. Neurologic: Alert and oriented x3. Psychiatric: Appropriate mood and affect. PERTINENT LABORATORY DATA: White cell count 5000, hematocrit 36. Creatinine 0.4. PERTINENT IMAGES: Renal ultrasound revealed no evidence of hydronephrosis or masses. ASSESSMENT: A 69-year-old female with recent seizures and reportedly episode of urinary incontinence as well as history of urinary tract infections. She denies having retention prior to the seizure episode and [*] Carter catheter was placed due to her having a seizure and having an accident. She would like to have the catheter removed. I discussed it is very reasonable without her previous history of retention to do so. She is content with following up with her family physician for recurrent urinary tract infections. I reviewed her ultrasound results with her. PLAN: 1. Okay to remove Carter catheter. 2. Recommend checking postvoid residual and as long as it is acceptable, no further urologic followup needed. Thank you for the consultation. cc: King Lovelace MD
--- NOTE | 2019-08-22 14:07 | ECHO REPORT ---
ORDER DATE: 08/20/2019 INDICATION: Possible CVA. FINDINGS: 1. The right atrium appears normal in size. 2. Mild tricuspid regurgitation. RV systolic pressure of 39. 3. Normal RV size and systolic function. 4. No significant pulmonic insufficiency. 5. Mild left atrial enlargement with a volume index of 30. 6. No mitral prolapse. Mild mitral regurgitation. No clear evidence of mitral stenosis. 7. Normal LV size, end-diastolic dimension of 3.7 cm. Normal wall thicknesses with a posterior and interventricular septal wall thickness of 1 cm each. Normal LV systolic function. Calculated EF of 63% with normal wall motion. 8. Aortic valve opens well. No evidence of stenosis or insufficiency. 9. Aorta appears normal in visualized segments. 10. No pericardial effusion seen. cc: MD Madhu Whiting MD
--- NOTE | 2019-08-22 21:33 | NEUROLOGY PROGRESS NOTE ---
DATE: 08/22/2019 SUBJECTIVE: Dr. Comer saw Ms. Lawton for Neurology evaluation yesterday. History from her attentive son today is that patient had 1st apparent likely seizure about a month ago. Son has witnessed several episodes beginning with apparent involuntary left arm jerking and left facial twitching. Son has some knowledge of seizure and believes her appearance was typical for focal motor seizure. She would often be unresponsive and sometimes obviously unconscious during these episodes. She had typical postictal drowsiness. She seemed weaker on the left side after an episode than at baseline. Son is not aware of any prior diagnosed stroke, serious head injury, or other brain event. She has been using clonazepam for the last year or so, 0.5 mg most nights. She reports she has occasionally run out and missed clonazepam doses and felt nervous and had a sense she needed to refill the prescription, but she never had any more prominent withdrawal symptoms. Prior to admission, she was taking carbamazepine chronically for management of dysesthesia, according to son. Levetiracetam was added recently. Levetiracetam dose was increased from 500 mg b.i.d. to 1000 mg b.i.d. here and she appears to be tolerating that. Workup here includes labs showing mild hyponatremia, a few other minor findings, nothing that generally would be sufficient to explain seizure or encephalopathy. EEG showed slowing on the right side with associated epileptiform discharge. Brain MRI shows some micro ischemic changes and this may be more prominent in the right subcortical white matter than on the left. There is not evidence of acute infarction, mass, bleeding or other definite structural lesion in the right hemisphere. She has had significant blood pressure elevation from time to time. Son believes elevated blood pressure was thought to be responsible for at least one of her recent likely seizure episodes. PHYSICAL EXAMINATION: On exam now, she is awake, alert, sitting up, attentive. She answered questions appropriately. She did rapid alternating movements better with the right hand than the left. I can overcome the left arm at the deltoid grading 4+/5. She did a little better with right [id number] than with the left. Visual melo are full. I did not test her gait. IMPRESSION: Apparent recent onset focal motor seizure with nondominant right hemisphere focus, no definite seizures recognized clinically with current levetiracetam dose. Reason for seizure is not completely clear to me. I discussed my uncertainty frankly with patient and son at the bedside. I think we should continue levetiracetam, continue other management and support, follow clinically. Later, we might consider repeating electroencephalogram. Thanks for asking Neurology to see Ms. Lawton. cc: MD GLENAD Anne III
[2019-08-23] MEDS: KLONOPIN PO PRN ×3 (04:01→20:28)
[2019-08-23] MEDS: PROTONIX PO SCH (06:49)
[2019-08-23] MEDS: SECTRAL PO SCH (09:02)
[2019-08-23] MEDS: TEGRETOL PO SCH ×3 (09:02→20:02)
[2019-08-23] MEDS: PLAQUENIL PO SCH (09:02)
[2019-08-23] MEDS: LEXAPRO PO SCH (09:03)
[2019-08-23] MEDS: MS CONTIN PO SCH ×2 (09:03→20:00)
[2019-08-23] MEDS: FOLIC ACID PO SCH (09:03)
[2019-08-23] MEDS: PRINIVIL PO SCH (09:03)
[2019-08-23] MEDS: ASPIRIN EC PO SCH (09:03)
[2019-08-23] MEDS: VITAMIN B-12 PO SCH (09:04)
[2019-08-23] MEDS: KEPPRA 1,000 MG/NS 1,000 MG/100 ML IVPB IV SCH ×2 (09:04→20:02)
[2019-08-23] MEDS: LOVENOX SUBQ SCH (09:04)
[2019-08-23] MEDS ORDERED: CALMOSEPTINE OINTMENT TOP PRN (09:45)
--- NOTE | 2019-08-23 10:22 | PROGRESS NOTE ---
DATE: 08/23/2019 INTERVAL HISTORY: Overnight, she did have episodes of agitation requiring oral clonazepam, and in the morning when I came in and saw her, she was asleep. She is arousable to strong verbal stimuli, but she is not able to maintain adequate level of alertness, and she falls asleep. So, neurological examination has been difficult. Urology team had recommended removing urine catheter. CURRENT VITALS: Temperature of 98.6 degrees, pulse of 65, respiratory rate 19, blood pressure 130/56. She is saturating 96% on 2 L nasal cannula. PHYSICAL EXAMINATION: General: She does not appear in acute distress. Oral cavity: Moist. Lungs: Air entry bilaterally equal. No wheeze or rhonchi. She has crackles in bilateral infrascapular region. Cardiovascular: S1, S2 normal. No murmur or gallop. Abdomen: Soft, nontender. Extremities: No lower extremity edema. Neurologic: On yesterday's neurological examination, her power was 5/5 in right upper and right lower extremity. It was somewhat reduced in left upper and left lower extremity. She also had slightly diminished sensation in left upper and left lower extremity as compared to the right. I could not assess her neurological status today. LABS: No new labs today. Her vitamin B 12 and folic acid was low; vitamin B 12 being 160, folic acid being 8.7. ASSESSMENT AND PLAN: 1. Acute encephalopathy due to focal onset seizure, now resolved, though she is drowsy currently due to clonazepam use. Yesterday, she was alert and oriented. Overnight episode of agitation was likely hospital-acquired delirium. I will keep on monitoring her mental status. 2. New onset focal seizure which was demonstrated on electroencephalogram. Continue carbamazepine and higher dose of Keppra. My plan will be to discharge her on current doses of antiseizure medications in future. 3. Macrocytic anemia due to B12 and folic acid deficiency: Start B12 and folate supplementation. 3. History of systemic lupus erythematosus and Sjogren's syndrome. Continue home hydroxychloroquine; continue home Acebutolol lisinopril for essential hypertension. 4. History of chronic pain. Continue extended release morphine and short-acting morphine as needed, which I confirmed from her son yesterday. 5. Others. Her ultrasound duplex renal artery could not be performed properly. Her echocardiogram was largely unremarkable. I will continue to monitor patient inside the hospital and will have physical therapy evaluate her. Based on that, I would plan discharge in next 24 to 48 hours. I will keep her on enoxaparin for deep vein thrombosis prophylaxis. cc: Narayan Briggs MD MTDD
--- NOTE | 2019-08-23 20:23 | NEUROLOGY PROGRESS NOTE ---
DATE: 08/23/2019 SUBJECTIVE/OBJECTIVE: Ms. Lawton has had a peaceful night. She has not had any clinically recognized seizure. She seems to be recovering towards baseline mentally. ASSESSMENT/PLAN: I discussed with attentive friend at the bedside the uncertainty regarding explanation for recent focal seizure. She has been stable with no seizure recognized since increasing levetiracetam. I think we can continue the current regimen and follow. Thanks for asking Neurology to see Ms. Lawton. cc: Lul Morales III, MD
[2019-08-23] MEDS: TYLENOL PO PRN (20:28)
[2019-08-24] MEDS: PROTONIX PO SCH (06:15)
[2019-08-24 07:19] LABS: BASO# 0.15 X1000 (0.0-0.2); BASO% 3.5 % (0.0-0.8); EOS# 0.12 X1000 (0.0-0.7); EOS% 2.8 % (0.0-10.0); HEMATOCRIT 36.9 % (37.0-47.0); HEMOGLOBIN 11.9 g/dL (12.0-16.0); LYMPH# 1.29 X1000 (1.2-3.4); LYMPH% 29.7 % (20.5-51.1); MCH 34.1 PG (27-31); MCHC 32.2 g/dL (33-37); MCV 105.7 FL (81-99); MONO# 0.72 X1000 (0.11-0.59); MONO% 16.6 % (1.7-9.3); MPV 9.8 FL (7.4-10.4); NEUT# 2.06 X1000 (1.4-6.5); NEUT% 47.4 % (42.2-75.2); PLT 251 X1000 (130-400); RBC 3.49 XMIL (4.2-5.4); RDW 16.5 % (11.5-14.5); WBC 4.34 X1000 (4.8-10.8)
[2019-08-24 08:26] LABS: AGAP 16; BUN 16 mg/dL (8-22); CALCIUM 9.3 mg/dL (8.8-10.2); CHLORIDE 95 mmol/L (98-107); COSMO 269; CREATININE 0.6 mg/dL (0.5-0.9); ESTIMATED GFR > 60; GLUCOSE 84 mg/dL (70-104); POTASSIUM 4.9 mmol/L (3.5-5.1); SODIUM 134 mmol/L (136-145); TCO2 23 mmol/L (25-35)
[2019-08-24] MEDS: KEPPRA 1,000 MG/NS 1,000 MG/100 ML IVPB IV SCH (09:03)
[2019-08-24] MEDS: FOLIC ACID PO SCH (09:04)
[2019-08-24] MEDS: MS CONTIN PO SCH ×2 (09:04→20:14)
[2019-08-24] MEDS: LEXAPRO PO SCH (09:04)
[2019-08-24] MEDS: ASPIRIN EC PO SCH (09:04)
[2019-08-24] MEDS: TEGRETOL PO SCH ×3 (09:04→20:14)
[2019-08-24] MEDS: SECTRAL PO SCH (09:05)
[2019-08-24] MEDS: LOVENOX SUBQ SCH (09:05)
[2019-08-24] MEDS: PLAQUENIL PO SCH (09:05)
[2019-08-24] MEDS: PRINIVIL PO SCH (09:05)
[2019-08-24] MEDS: VITAMIN B-12 PO SCH (09:06)
--- NOTE | 2019-08-24 14:47 | PROGRESS NOTE ---
DATE: 08/24/2019 INTERVAL HISTORY: No acute events overnight. SUBJECTIVE: Ms. Lawton is eating her breakfast at the moment. She appears confused. She had pulled out her IV line. I informed the nurse about this. Ms. Lawton states she lives with her mother. She denies any chest pain, shortness of breath. She denies any nausea or vomiting. VITALS: Temperature 97.7 degrees, pulse 65, respiratory rate 16, blood pressure 143/50. She is saturating 100% on 2 to 3 L nasal cannula, however her nasal cannula was off and her oxygen saturation was 97%. PHYSICAL EXAMINATION: Oral cavity is moist.Lungs: Air entry bilaterally equal. No wheeze or rhonchi. Mild crackles in infrascapular region. Cardiovascular: S1, S2 normal. No murmur, rub, or gallop. Abdomen: Scaphoid, soft, nontender. Active bowel sounds. She does not have any lower extremity edema. Neurological: She is alert. She is oriented to herself. She could tell me that this was hospital. She was not oriented with the situation. Her pupils are equal, reacting to light. Her sensations are intact bilateral upper and lower extremity and she was grimacing to painful stimuli. She does not have any slurring of speech. She does not have any facial asymmetry. Her power is at least 4 to 5 on 5 on bilateral shoulder and elbow joints. She was able to lift both lower extremities above ground level as well and able to flex both of her knees with power of 3 on 5. Her reflexes, Babinski, plantar reflex. She does have plantar flexion. LABORATORY: Hemoglobin of 11.9, platelet of 251,000. Sodium of 134, BUN of 16, creatinine of 0.6. Microbiology, no data. No new imaging. ASSESSMENT AND PLAN: 1. Acute encephalopathy due to focal onset seizure. MRI of the brain did detect chronic microvascular ischemic changes and she may also have baseline cognitive dysfunction. Her current hospital-acquired delirium could also be contributing to it. I will continue to monitor her mental status. I will minimize use of benzodiazepines. 2. New onset focal seizures since June 2019. She did have a focus of seizure on right temporal lobe as per neurologist note and she on presentation had left-sided Mickey's paralysis, now paralysis seems to have resolved. I will continue current dose of carbamazepine and levetiracetam and continue her on seizure precautions. 3. Macrocytic anemia due to B12 and folic acid deficiency. Her hemoglobin is stable. Continue supplementation with vitamin B12 and folic acid. 4. History of SLE and Sjogren's syndrome. Continue home hydroxychloroquine. 5. Uncontrolled hypertension on presentation. I will continue her acebutolol and lisinopril which are controlling her blood pressure well. Attempts were made to rule out renal artery stenosis, though it could not be performed appropriately. 6. History of chronic pain. The patient is on extended release morphine and short-acting morphine as needed, which I will continue. DISPOSITION: The patient may need to go to rehab or longterm facility. According to Armored Service Technician, referrals have been made. I tried to call patient's son and have a detailed discussion about the patient's cognitive dysfunction and medical management plan. However, he did not tack picker and voice mailbox was full. Continue to monitor patient in the hospital. Plan of care discussed with nursing team. cc: Narayan Briggs MD
[2019-08-24] MEDS: KEPPRA PO SCH (20:14)
[2019-08-25] MEDS ORDERED: KLONOPIN PO ONE (02:04)
[2019-08-25] MEDS: PROTONIX PO SCH (05:56)
[2019-08-25] MEDS: TYLENOL PO PRN (08:07)
[2019-08-25] MEDS: FOLIC ACID PO SCH (08:07)
[2019-08-25] MEDS: LEXAPRO PO SCH (08:07)
[2019-08-25] MEDS: KEPPRA PO SCH ×3 (08:07→23:48)
[2019-08-25] MEDS: MS CONTIN PO SCH ×3 (08:08→23:48)
[2019-08-25] MEDS: PLAQUENIL PO SCH (08:08)
[2019-08-25] MEDS: TEGRETOL PO SCH ×4 (08:08→23:49)
[2019-08-25] MEDS: PRINIVIL PO SCH (08:08)
[2019-08-25] MEDS: ASPIRIN EC PO SCH (08:08)
[2019-08-25] MEDS: VITAMIN B-12 PO SCH (08:09)
[2019-08-25] MEDS: SECTRAL PO SCH (08:09)
[2019-08-25] MEDS: HALDOL IV PRN (08:17)
[2019-08-25] MEDS: KLONOPIN PO PRN ×2 (08:17→19:48)
[2019-08-25] MEDS ORDERED: KLONOPIN PO SCH (09:00)
[2019-08-25] MEDS: LOVENOX SUBQ SCH (13:12)
--- NOTE | 2019-08-25 14:41 | PROGRESS NOTE ---
DATE: 08/25/2019 Came in with left-sided weakness. Mr. Lore Lawton is a 69-year-old female with a history of hypertension who presented to the hospital with left-sided weakness of recent onset. The patient also describes having slurred speech, dizziness, as well as headaches. The patient also gives a history of seizure prior to this. She is not exactly sure how long. The family seems to think this started 4 weeks ago and that she has had progressive deterioration both of her cognitive function and her judgment. They had been, I think, to [facility] and then had been to [facility]. She had a CT done of her brain which was unremarkable for any acute lesions. Noted to have markedly elevated blood pressure, which is high at 220/126 on presentation. PAST MEDICAL HISTORY: 1. Hypertension, systemic lupus erythematosus, and Sjogren's syndrome. The patient does smoke. She, according to family, has been independent before a month ago and driving around, and very independent but this has drastically changed in the last 4 weeks, so was admitted with acute cerebellar accident, left hemiparesis. Maintain the patient on aspirin and statin right now. I think an MRI and MRA of the brain have been obtained and they got an echocardiogram. 2. Seizure disorder. It sounds like they were told it was jacksonian. They recently started on Keppra as well as her carbamazepine and her Neurontin. 3. She has had delirium, more confusion last night. Put her back on her Klonopin which this may have been Klonopin withdrawal. She was on 0.5 mg, I think, twice a day by description. 4. Hypertension. Blood pressure better. 5. History of systemic lupus erythematosus, on Plaquenil. 6. History of Sjogren's syndrome, dry eyes, dry mouth, symptomatically. 7. Urinary retention. Urinalysis and urine culture. They had a Carter catheter placed per urology. 8. Tobacco use. She is on a nicotine patch. 9. Anemia. Checking iron studies, B12, folate. PHYSICAL EXAMINATION: She was sleeping. She has had a rough night. We recently put her back on her Klonopin and she was very agitated and so we will use Haldol p.r.n. if we need to. Temperature 98.3 degrees, pulse 67, respirations 16, blood pressure 165/70. Pupils are equal and round. Lungs are clear in all lung melo. Cardiovascular Examination: Regular rhythm and rate without murmur or S3. Abdomen is soft. Skin is warm and dry. Dr. Morales has evaluated. Uncertain regarding explanation for recent focal seizure. She has been stable. No seizure while in the hospital. Brain MRA, no definite abnormality. Brain MRI, extensive chronic microvascular changes. No evidence of acute disease. Echocardiogram done on 08/20/2019, left ventricular, atrial enlargement. No mitral prolapse. Normal left ventricular size. Ejection fraction of 63%. Aortic valve opens nicely. No valvular dysfunction. Electroencephalogram done on 08/21/2019, abnormal routine electroencephalogram due to epileptiform discharges maximally in the right mid temporal head region, indicative of focal cortical irritability. Slowing of the right hemisphere which may be postictal phenomenon. Structural brain would also be a consideration. Mild to moderate generalized slowing, indicative of mild-to- moderate nonspecific encephalopathy. Cardiology was asked to see. [place] she had some encephalopathy, seizure disorder, focal, history of ulcerative colitis, history of systemic lupus erythematosus, anxiety disorder, urinary tract infection in the past, multiple pulmonary nodules were appreciated. Exam today, she was sleeping. She had a pretty rough night. I talked to her daughter at length. Temperature 98.3 degrees, afebrile, pulse 64, respirations 16, blood pressure 165/70. Pupils are equal and round. Lungs are clear in all lung melo. Cardiovascular examination, regular rhythm and rate without murmur or S3. Abdomen is soft. Skin is warm and dry. ASSESSMENT AND PLAN: 1. Acute encephalopathy due to focal onset seizure. MRI of the brain did not detect any chronic microvascular ischemic changes. She may also have had baseline cognitive dysfunction. Her current hospital-acquired delirium could also be contributing to her altered mental status so put her back on her benzodiazepines as I am concerned about possible withdrawal. 2. New onset focal seizures since June 2019. She did have a focus of seizures on the right temporal lobe and presentation with left-sided Mickey's paralysis. The paralysis has resolved so continue carbamazepine and levetiracetam. 3. Macrocytic anemia due to B12 and acid deficiency. Her hemoglobin is stable. Continue to supplement B12 and folic acid. 4. Systemic lupus erythematosus and Sjogren's syndrome. She is on her hydroxychloroquine. Continue this. 5. Uncontrolled hypertension on presentation. Continued to be on acebutolol and lisinopril which seem to be controlling blood pressure well. 6. Chronic pain and apparently she took morphine at home so she had more delirium and agitation last night. I put her back on her Klonopin. Concerned about withdrawal. Family is pretty upset. We are going to continue Tegretol 200 mg three times a day. She is back on her Klonopin 0.5 mg twice a day and they had started Keppra which we will keep at 1000 mg by mouth twice a day. Her lab looks good this morning. Renal function looks good so we will see how we do. cc: Abdiel Tripathi MD
[2019-08-26] MEDS: HALDOL IV PRN ×2 (02:11→12:19)
[2019-08-26] MEDS: PROTONIX PO SCH ×2 (06:01→06:03)
[2019-08-26] MEDS: SECTRAL PO SCH (09:01)
[2019-08-26] MEDS: TEGRETOL PO SCH ×3 (09:02→20:48)
[2019-08-26] MEDS: KEPPRA PO SCH ×2 (09:02→20:48)
[2019-08-26] MEDS: ASPIRIN EC PO SCH (09:02)
[2019-08-26] MEDS: FOLIC ACID PO SCH (09:02)
[2019-08-26] MEDS: PRINIVIL PO SCH (09:02)
[2019-08-26] MEDS: VITAMIN B-12 PO SCH (09:02)
[2019-08-26] MEDS: LEXAPRO PO SCH (09:03)
[2019-08-26] MEDS: LOVENOX SUBQ SCH (09:03)
[2019-08-26] MEDS: PLAQUENIL PO SCH (09:03)
[2019-08-26] MEDS: MS CONTIN PO SCH (09:10)
--- NOTE | 2019-08-26 12:29 | PROGRESS NOTE ---
DATE: 08/26/2019 SUBJECTIVE: Ms. Lawton was sleeping. She was sound asleep. She had a bowl in her hand that she had finished eating and so I laid her head back down. She apparently had a little bit of a better night, but they did have to give her some Haldol again, very agitated and confused. She looks very wore out and tired. OBJECTIVE: Vital Signs: Temperature 98.6 degrees, pulse 60, respirations 17, blood pressure 119/57. HEENT: Pupils are equal and round. Lungs: Clear in all lung melo. Cardiovascular: Regular rate without murmur or S3. Abdomen: Soft. Skin: Warm and dry. ASSESSMENT AND PLAN: 1. Acute encephalopathy due to focal onset will seizure by report. MRI of the brain did not detect any changes other than chronic microvascular ischemic changes. She has also had some baseline cognitive dysfunction over the last 4 weeks for sure. Her current hospital-acquired delirium I suspect is multifactorial. She is very lethargic. I put her back on her Klonopin as she had more confusion, agitation, and was concerned about withdrawal. 2. New onset focal seizures by report June 2019 and apparently he has a seizure focus on the right temporal lobe seen on EEG with left-sided Mickey's paralysis. 3. Microcytic anemia due to B12 and folic acid deficiency. Hemoglobin is stable. Supplementing B12 and folic acid. 4. Systemic lupus erythematosus and Sjogren syndrome. She is on hydroxychloroquine and will continue this at her usual dose. 5. Uncontrolled hypertension. Blood pressure appears better. 6. Chronic pain was taking some morphine at home. 7. Review of her current medications: She is onsecretal 200 mg p.o. daily. She is on aspirin 81 mg a day, Tegretol 200 mg p.o. t.i.d. I put her back on the Klonopin 0.5 mg b.i.d. p.r.n., and she is on vitamin B12 500 mcg p.o. daily, Lovenox 40 mg subcutaneous daily, vitamin D 77980 units once a week I think. Lexapro 20 mg p.o. q.a.m., folic acid 1 mg daily, hydroxychloroquine 300 mg daily, labetalol 200 mg IV q.4 hours p.r.n. elevated blood pressure, and she is on Keppra, which we have started a 1000 mg p.o. b.i.d., Prinivil 10 mg a day, morphine ER 15 mg b.i.d. which I think we ought to stop at this point, and the morphine IR we will hold, too, until she wakes up some. Protonix 40 mg a day. cc: Abdiel Tripathi MD MTDD
[2019-08-26 17:14] LABS: URINE SOURCE CLEAN CATCH
[2019-08-26 17:32] LABS: BILIRUBIN URINE NEGATIVE (NEGATIVE); BLOOD URINE NEGATIVE (NEGATIVE); COLOR YELLOW; GLUCOSE URINE NEGATIVE (NEGATIVE); KETONE URINE NEGATIVE (NEGATIVE); LEUKOCYTES URINE MODERATE (NEGATIVE); NITRITE URINE NEGATIVE (NEGATIVE); PROTEIN URINE TRACE mg/dL (NEGATIVE); SP GRAVITY URINE 1.014; TURBIDITY URINE HAZY (CLEAR); UROBILINOGEN URINE NORMAL (NORMAL)
[2019-08-26 17:35] LABS: UR EPITHELIAL CELLS <10 /HPF (<10); URINE BACTERIA 3+ /HPF; URINE WBC TNTC /HPF (<10)
[2019-08-26 17:37] LABS: URINE CASTS NONE SEEN; URINE CRYSTALS NONE SEEN; URINE SMALL ROUND CELLS NONE SEEN; URINE YEAST NONE SEEN
[2019-08-26] MEDS ORDERED: ROCEPHIN 1 GM in NS 50 ML IV ONE (17:47)
[2019-08-26] MEDS: TYLENOL PO PRN (21:13)
[2019-08-26] MEDS: KLONOPIN PO PRN (21:13)
[2019-08-27] MEDS ORDERED: VITAMIN D PO SCH
[2019-08-27] MEDS: PROTONIX PO SCH (05:49)
--- NOTE | 2019-08-27 07:05 | PROGRESS NOTE ---
DATE: 08/27/2019 SUBJECTIVE: Ms. Lawton opened her eyes. She knew she was is in the hospital. She seemed to be calm this morning. I had stopped her morphine yesterday. Had a long discussion with son. I do think this is still generalized delirium and I suspect the medications are the chief component so I had stopped her morphine. She does not appear to be uncomfortable. OBJECTIVE: Temperature 97.5 degrees, pulse 67, respirations 16, blood pressure 141/60. HEENT: Pupils are equal and round. Lungs are clear in all lung melo. Cardiovascular Examination: Regular rhythm and rate without murmur or S3. Abdomen is soft. Skin is warm and dry. ASSESSMENT AND PLAN: 1. Acute encephalopathy due to focal onset with seizure report. MRI of the brain did not detect any acute changes. She has had some baseline cognitive dysfunction over the last 4 weeks but just steadily got worse. I suspect this is generalized delirium and probably metabolic encephalopathy, most likely from medications and opioids, we had stopped yesterday. 2. Onset of focal seizure in June 2019. Before that, family claims she was independent and very alert and sharp. EEG showed right temporal epileptic signs and it looked like she had Mickey's paralysis. She is on Keppra. 3. Macrocytic anemia and we are supplementing her B12 and her folate. 4. Blood pressure appears well controlled. 5. She did have quite a bit of sediment in her urine so I started her on ceftriaxone for possible underlying urinary tract infection. cc: Abdiel Tripathi MD
[2019-08-27] MEDS: SECTRAL PO SCH (09:12)
[2019-08-27] MEDS: KEPPRA PO SCH ×2 (09:12→22:00)
[2019-08-27] MEDS: LOVENOX SUBQ SCH (09:12)
[2019-08-27] MEDS: FOLIC ACID PO SCH (09:12)
[2019-08-27] MEDS: VITAMIN B-12 PO SCH (09:12)
[2019-08-27] MEDS: PRINIVIL PO SCH (09:13)
[2019-08-27] MEDS: PLAQUENIL PO SCH (09:13)
[2019-08-27] MEDS: ASPIRIN EC PO SCH (09:13)
[2019-08-27] MEDS: TEGRETOL PO SCH ×3 (09:13→22:00)
[2019-08-27] MEDS: LEXAPRO PO SCH (09:13)
[2019-08-27] MEDS: VITAMIN D PO SCH (09:19)
--- NOTE | 2019-08-27 14:19 | NEUROLOGY PROGRESS NOTE ---
DATE: 08/27/2019 SUBJECTIVE: General: No major overnight events. She has no current complaints. Vital Signs: She remains afebrile, blood pressure 144/74, pulse 64, respirations 18, 95% on room air. General: Ms. Lawton is supine in bed with head of bed elevated. She is awake, alert, oriented to self, a friend, hospital, year month, and in the day of the week she did not know the date. She knew the president. She followed some simple commands and a complex command. No language disturbance. Heent: Pupils are equal, miotic, but reactive. Gaze is conjugate. Full ocular movements. Face symmetric with equal activation. Power is improved on the left side and seems more equal than before. LABORATORY: Laboratories reviewed in the chart from yesterday. There are not new labs today. ASSESSMENT AND PLAN: Recent focal seizure with presumed right hemisphere focus. There has not been further seizure activity witnessed clinically in the hospital for several days. I would continue the current dose of Keppra, continue carbamazepine, which I believe she is on for other purposes. I am not certain why she has began have seizures. We may need to consider repeating a contrasted MRI of the brain in the future. Continue seizure precautions. She should not be driving. cc: Natali Comer MD
[2019-08-27] MEDS: HALDOL IV PRN ×2 (14:49→22:19)
[2019-08-27] MEDS: TYLENOL PO PRN ×2 (14:56→22:19)
[2019-08-27] MEDS: ROCEPHIN 1 GM in NS 50 ML IV SCH (17:37)
[2019-08-28] MEDS: KLONOPIN PO PRN ×2 (00:51→20:10)
[2019-08-28] MEDS: PROTONIX PO SCH (05:45)
[2019-08-28] MEDS: ASPIRIN EC PO SCH (08:50)
[2019-08-28] MEDS: TEGRETOL PO SCH ×3 (08:50→20:10)
[2019-08-28] MEDS: LEXAPRO PO SCH (08:50)
[2019-08-28] MEDS: VITAMIN B-12 PO SCH (08:50)
[2019-08-28] MEDS: FOLIC ACID PO SCH (08:50)
[2019-08-28] MEDS: SECTRAL PO SCH (08:50)
[2019-08-28] MEDS: KEPPRA PO SCH ×2 (08:50→20:10)
[2019-08-28] MEDS: PLAQUENIL PO SCH (08:50)
[2019-08-28] MEDS: PRINIVIL PO SCH (08:51)
[2019-08-28] MEDS: LOVENOX SUBQ SCH (08:51)
--- NOTE | 2019-08-28 09:45 | PROGRESS NOTE ---
DATE: 08/28/2019 SUBJECTIVE: She is really back to baseline. She is awake and alert. Does not remember much about the event, the last couple of days. Remains afebrile. OBJECTIVE: Temperature 97.7 degrees, pulse 82, respirations 19, blood pressure 167/65. Pupils are equal and round. Lungs are clear in all lung melo. Cardiovascular Examination: Regular rhythm and rate without murmur or S3. Abdomen is soft. Skin is warm and dry. ASSESSMENT AND PLAN: 1. Recent focal seizure, presumed right hemisphere focus. There had not been any further seizure activity. She presented with delirium. Continue current dose of Keppra and carbamazepine. I suspect the opioids were causing quite a bit of confusion. She is off of her morphine and doing much better. I am going to see if we can get physical therapy to get her up and see how we do. Hopefully, she can go home soon. 2. Macrocytic anemia. She is on B12 and folate. cc: Abdiel Tripathi MD
[2019-08-28] MEDS: TYLENOL PO PRN ×2 (11:17→20:11)
--- NOTE | 2019-08-28 11:52 | NEUROLOGY PROGRESS NOTE ---
DATE: 08/28/2019 SUBJECTIVE: Ms. Lawton has not had definite seizure. She reports not having any involuntary left arm movement. She does not notice any adverse effects with increased levetiracetam dose. OBJECTIVE: This morning, she is awake, alert, attentive, much brighter and more conversant, more spontaneous than I had seen before. Residential Green Building Designer at the bedside attributes this improved alertness to reducing morphine dose. She believes morphine has been used for management of limb pain attributed to peripheral neuropathy. She reports she does not know the reason for neuropathy. She has never had diabetes mellitus diagnosed. There is no history of thyroid disease. She has listed diagnoses including Sjogren's and lupus but is not certain autoimmune inflammatory neuropathy is her diagnosis. We discussed diagnosis of peripheral neuropathy, management of dysesthesia, and my hope that that can be accomplished without opiates. For seizure management, I would continue levetiracetam 1000 mg b.i.d. I discussed that dose with patient. We discussed potential adverse effects, and she understands to report any problems. Her medicines include clonazepam and carbamazepine for reasons other than seizure management. I told her to be careful with those. I do not have any other suggestion from Neurology standpoint. I will be glad to see Ms. Lawton as an outpatient, if needed. cc: MD GLENDA Anne III
[2019-08-28] MEDS: NEURONTIN PO SCH (12:04)
[2019-08-28] MEDS: ROCEPHIN 1 GM in NS 50 ML IV SCH (18:00)
[2019-08-29] MEDS: HALDOL IV PRN (01:02)
[2019-08-29] MEDS: PROTONIX PO SCH (06:34)
[2019-08-29] MEDS: ASPIRIN EC PO SCH (08:20)
[2019-08-29] MEDS: KEPPRA PO SCH ×2 (08:20→21:20)
[2019-08-29] MEDS: SECTRAL PO SCH (08:20)
[2019-08-29] MEDS: NEURONTIN PO SCH (08:20)
[2019-08-29] MEDS: VITAMIN B-12 PO SCH (08:20)
[2019-08-29] MEDS: LEXAPRO PO SCH (08:20)
[2019-08-29] MEDS: PLAQUENIL PO SCH (08:20)
[2019-08-29] MEDS: LOVENOX SUBQ SCH (08:21)
[2019-08-29] MEDS: PRINIVIL PO SCH (08:21)
[2019-08-29] MEDS: TEGRETOL PO SCH ×3 (08:21→21:20)
[2019-08-29] MEDS: FOLIC ACID PO SCH (08:21)
--- NOTE | 2019-08-29 10:31 | PROGRESS NOTE ---
DATE: 08/29/2019 SUBJECTIVE: She is awake and alert. Wants to go home. She has really not walked around much, but she is completely alert and denies any pain. I put her back on her Neurontin, but had stopped her morphine. OBJECTIVE: Vital Signs: Temperature 98.1 degrees, pulse 70, respirations 18, blood pressure 169/74. HEENT: Pupils are equal and round. Lungs: Clear in all lung melo. Cardiovascular: Regular rhythm and rate without murmur or S3. Input and Output: Urine output was 800 mL. ASSESSMENT AND PLAN: 1. Recent focal seizures, presumed right hemisphere focus. There has not been any further seizure event. She presented with altered mental status and profound delirium. She is on a dose of Keppra, and she is taking carbamazepine. I stopped her opioids, her morphine, and there was pretty dramatic improvement in her mental status. Presently, she is on Tegretol 200 mg by mouth 3 times daily. I put her back on her Klonopin 0.5 mg twice daily, folic acid 1 mg daily. She is back on her Neurontin 600 mg by mouth daily and Keppra 1000 mg by mouth twice daily, Prinivil 10 mg daily, Protonix 40 mg a day. Because the urine had quite a bit of sediment, she was on ceftriaxone 1 gram intravenously every 24 hours, so we want to make sure she is walking, and if she does okay with ambulation she should be able to go home tomorrow. cc: Abdiel Tripathi MD
[2019-08-29] MEDS: TYLENOL PO PRN ×2 (12:49→21:20)
--- NOTE | 2019-08-29 15:04 | Diag Imaging Result Doc PS360 ---
EXAM: CHEST-PORTABLE 08/29/2019 HISTORY: shortness of breath TECHNIQUE: AP portable at 1454 COMMENT: There is some perihilar opacity particularly in the right upper lobe. There are no previous studies available for comparison there is some platelike opacity in the lingula and medial right base. IMPRESSION: Atelectasis and questionable right upper lobe pneumonia. Electronically signed by Michael Rivera 08/29/2019 3:02 PM
[2019-08-29] MEDS: KLONOPIN PO PRN ×2 (15:14→21:20)
[2019-08-29] MEDS: ROCEPHIN 1 GM in NS 50 ML IV SCH (18:02)
[2019-08-30] MEDS: PROTONIX PO SCH (06:38)
[2019-08-30] MEDS: TYLENOL PO PRN ×2 (07:39→23:50)
[2019-08-30] MEDS: NEURONTIN PO SCH ×3 (08:20→20:34)
[2019-08-30] MEDS: TEGRETOL PO SCH ×2 (08:21→14:06)
[2019-08-30] MEDS: FOLIC ACID PO SCH (08:21)
[2019-08-30] MEDS: PRINIVIL PO SCH (08:21)
[2019-08-30] MEDS: PLAQUENIL PO SCH (08:21)
[2019-08-30] MEDS: KLONOPIN PO PRN (08:21)
[2019-08-30] MEDS: KEPPRA PO SCH ×2 (08:21→20:27)
[2019-08-30] MEDS: LOVENOX SUBQ SCH (08:21)
[2019-08-30] MEDS: ASPIRIN EC PO SCH (08:21)
[2019-08-30] MEDS: LEXAPRO PO SCH (08:21)
[2019-08-30] MEDS: SECTRAL PO SCH (08:21)
[2019-08-30] MEDS: VITAMIN B-12 PO SCH (08:21)
--- NOTE | 2019-08-30 14:21 | PROGRESS NOTE ---
DATE: 08/30/2019 SUBJECTIVE: Ms. Lawton was doing well yesterday until yesterday evening, got more confused. They gave her some more Haldol this morning. She is very lethargic, hard to open her eyes. No focal deficits appreciated. OBJECTIVE: Vital Signs: Blood pressure 134/62. HEENT: Pupils are equal and round. Lungs: Clear in all lung melo. Cardiovascular: Regular rhythm and rate without murmur or S3. Abdomen: Soft. Skin: Warm and dry. REVIEW OF HER ORDERS: She is on Sectral 200 mg a day, aspirin 81 mg a day, Tegretol 200 mg p.o. t.i.d., clonazepam 0.5 mg b.i.d. p.r.n., Lexapro 20 mg in the morning, folic acid 1 mg daily. She is back on her Neurontin daily. I am going to stop the Neurontin again. She is on hydroxychloroquine 300 mg daily, Prinivil 10 mg daily, Protonix 40 mg p.o. daily, and we are giving her ceftriaxone 1 g daily. We are going to repeat another EEG and I am going to diminish the Klonopin. In fact, I am going to discontinue the Klonopin and I will put her on Xanax 0.25 twice a day to see if that will improve. cc: Abdiel Tripathi MD
--- NOTE | 2019-08-30 14:31 | NEUROLOGY PROGRESS NOTE ---
DATE: 08/30/2019 SUBJECTIVE: Ms. Lawton had continued bright and alert until yesterday. Son at the bedside reports thinking she seemed more confused during his telephone call with her during the day yesterday, but he did not see her in person. She was still awake and alert when he phoned later in the day, but still seemed confused. She seemed more obtunded overnight and lethargic this morning. She told me this morning that she recalls having some involuntary left arm jerking at some point either late in the day yesterday or overnight. She has continued levetiracetam 1000 mg b.i.d. The medication chart shows no missed doses. She continues on clonazepam 0.5 mg b.i.d. and that is chronic. She has gabapentin 600 mg daily, also chronic. She has had several doses of haloperidol 5 mg p.r.n. for agitation, last dose during night before last, no dose in the last 24 hours. Alertness seemed much improved after morphine was discontinued, and she has not had morphine in the last 24 hours. OBJECTIVE: On exam, she appeared to be sleeping. I was able to wake her with minimal stimulation. She remained awake and alert during my time at the bedside. She was not quite as spontaneous as a few days ago, but still much improved compared to several days ago. I did not notice any left arm jerking or other abnormal movement. IMPRESSION: Concern for recurrent focal seizure activity in the last 24 hours as one possible explanation for her lethargy. I will order EEG and make sure there is not ongoing subclinical seizure. We might consider increasing levetiracetam dose. First, I would consider increasing carbamazepine from 200 mg t.i.d. which she has been taking chronically for adjunctive management of dysesthesia pain, either to 200 mg q.i.d. or 300 mg t.i.d. We can check carbamazepine serum level and levetiracetam serum level later if needed. I don't see a definite explanation for lethargy in the current medication list or the most recent chemistry lab reports. If there is concern for surreptitious drug ingestion, possibly from her home medications, we might find evidence on a urine drug screen today. I believe she was prepared to go to rehab today. I hope recent events will not postpone that for too long. Thanks for asking Neurology to see Ms. Lawton. cc: Lul Morales III, MD MTDD
--- NOTE | 2019-08-30 19:33 | EEG REPORT ---
DATE: 08/30/2019 EEG NUMBER: [id number]. This is a digitally recorded EEG on a 69-year-old patient with apparent recent focal motor seizure involving the left limbs, which had appeared well controlled until the last 24 hours. FINDINGS: There is intermittent medium and higher amplitude rhythmic slowing in the right hemisphere, with occasional associated epileptiform discharge, mostly sharp waves with phase reversal at the T4 electrode. Slowing across the left hemisphere is less prominent. There is poorly sustained 9 Hz posterior rhythm bilaterally with uncertain reactivity to eye opening. Drowsing and stage 2 sleep were recorded with mostly symmetric features. Hyperventilation was not done. Photic stimulation did not significantly alter the record. Electrographic seizure was not recorded. INTERPRETATION: Abnormal EEG because of predominantly right hemisphere slowing and infrequent epileptiform discharge. CORRELATION: This is indicative of a focal disturbance of electrocortical activity in the right hemisphere, and would correlate with her known seizure disorder. This record does not indicate the presence of subclinical seizure. cc: Lul Morales III, MD MTDD
[2019-08-30] MEDS: ROCEPHIN 1 GM in NS 50 ML IV SCH (20:26)
[2019-08-31] MEDS: PROTONIX PO SCH (06:46)
[2019-08-31] MEDS: ASPIRIN EC PO SCH (09:17)
[2019-08-31] MEDS: VITAMIN B-12 PO SCH (09:18)
[2019-08-31] MEDS: FOLIC ACID PO SCH (09:18)
[2019-08-31] MEDS: TEGRETOL PO SCH (09:20)
[2019-08-31] MEDS: PRINIVIL PO SCH (09:21)
[2019-08-31] MEDS: PLAQUENIL PO SCH (09:22)
[2019-08-31] MEDS: NEURONTIN PO SCH ×3 (09:23→22:29)
[2019-08-31] MEDS: KEPPRA PO SCH ×2 (09:23→22:29)
[2019-08-31] MEDS: LOVENOX SUBQ SCH (09:23)
[2019-08-31] MEDS: XANAX PO PRN ×2 (09:24→22:30)
--- NOTE | 2019-08-31 09:39 | PROGRESS NOTE ---
DATE: 08/31/2019 SUBJECTIVE: Ms. Lawton had a good night. There was more confusion though again last night, and it seems when it gets dark, it is worse. This morning she is fine, awake, alert and oriented. OBJECTIVE: Vital signs: Temperature 98.2 degrees, pulse 72, respirations 22, blood pressure 178/71. Blood pressures have been 133/63, 166/77, 112/66, 166/61, 178/71. ASSESSMENT AND PLAN: 1. She has a focal seizure activity seen again in the EEG. There is no sign that there is continued subclinical seizure going on. EEG does confirm epileptiform activity on the right hemisphere, slowing and infrequent epileptiform discharge. We have adjusted her medications. 2. Confusion in the evening and she may have some underlying dementia or cognitive decline but also suspect there may be a possibility of serotonin type syndrome as well. I have decreased her Neurontin. We have stopped her morphine, which made a dramatic improvement. I have decreased the Xanax to 0.25 mg p.o. b.i.d. p.r.n. She is on carbamazepine 300 mg q.a.m. and she is on the Lexapro 20 mg a day. We will cut down the Lexapro down to 10 mg, we have cut the Neurontin down to 200 mg 3 times a day and we will continue the Keppra 1000 mg twice a day. cc: Abdiel Tripathi MD
[2019-08-31] MEDS: SECTRAL PO SCH (10:21)
[2019-08-31] MEDS: ROCEPHIN 1 GM in NS 50 ML IV SCH (22:29)
[2019-09-01] MEDS: HALDOL IV PRN ×2 (04:15→17:18)
[2019-09-01] MEDS: PROTONIX PO SCH (05:03)
[2019-09-01] MEDS: KEPPRA PO SCH ×2 (10:13→20:18)
[2019-09-01] MEDS: FOLIC ACID PO SCH (10:13)
[2019-09-01] MEDS: ASPIRIN EC PO SCH (10:13)
[2019-09-01] MEDS: LEXAPRO PO SCH (10:13)
[2019-09-01] MEDS: SECTRAL PO SCH (10:15)
[2019-09-01] MEDS: PLAQUENIL PO SCH (10:15)
[2019-09-01] MEDS: PRINIVIL PO SCH (10:15)
[2019-09-01] MEDS: LOVENOX SUBQ SCH (10:15)
[2019-09-01] MEDS: XANAX PO PRN (10:15)
[2019-09-01] MEDS: NEURONTIN PO SCH ×3 (10:15→20:19)
[2019-09-01] MEDS: VITAMIN B-12 PO SCH (10:16)
[2019-09-01] MEDS: TEGRETOL PO SCH (10:16)
--- NOTE | 2019-09-01 10:59 | PROGRESS NOTE ---
DATE: 09/01/2019 SUBJECTIVE: Ms. Lawton had a rough night last night. She was upset, felt like a nurse had been too rough with her. Son said she called him in the middle of the night, so obviously some confusion still, some delirium. This morning, she does remember parts of it, and she does realize it was inappropriate. She was calling and saying things about her mother, who has been for a long time. She is oriented x3, and her insight seems to be improving. She does not appear uncomfortable otherwise. VITAL SIGNS: Temperature 97.8 degrees, pulse 73, respirations 22, blood pressure 194/134. Blood pressures have been 112/66, 166/61, 165/63, 194/134. ASSESSMENT AND PLAN: 1. She does have a history of focal seizures documented and confirmed, supported with electroencephalogram. They have not seen any sign of further seizures while she is here in the hospital. 2. Her confusion, I think was related more to her medication, in particular serotonin syndrome, and I have diminished her medicines. I am anxious to see how that will help. We have decreased her Xanax, stopped her opioid, which was morphine and long-acting morphine. I have decreased her Lexapro, decreased her Neurontin, so we will see how we do with physical therapy. Hoping to get her to rehab soon. They want to go to [facility]. We have not found any source of infection, so we will stop the ceftriaxone. Her urine did have some sediment, and we are treating that, so she will finish out 3 days of ceftriaxone, and then will stop that. Continue physical therapy. Hopefully can go to rehab soon. cc: Abdiel Tripathi MD
[2019-09-01] MEDS ORDERED: ATIVAN IV ONE (19:39)
[2019-09-01] MEDS: ROCEPHIN 1 GM in NS 50 ML IV SCH (20:16)
[2019-09-02] MEDS: PROTONIX PO SCH (05:24)
[2019-09-02] MEDS: ASPIRIN EC PO SCH (10:21)
[2019-09-02] MEDS: FOLIC ACID PO SCH (10:21)
[2019-09-02] MEDS: LEXAPRO PO SCH (10:22)
[2019-09-02] MEDS: VITAMIN B-12 PO SCH (10:22)
[2019-09-02] MEDS: NEURONTIN PO SCH ×3 (10:23→20:12)
[2019-09-02] MEDS: LOVENOX SUBQ SCH (10:23)
[2019-09-02] MEDS: PRINIVIL PO SCH (10:23)
[2019-09-02] MEDS: KEPPRA PO SCH ×2 (10:24→20:12)
[2019-09-02] MEDS: TEGRETOL PO SCH ×2 (10:25→17:19)
[2019-09-02] MEDS: PLAQUENIL PO SCH (10:25)
[2019-09-02] MEDS: SECTRAL PO SCH (10:25)
--- NOTE | 2019-09-02 13:34 | DISCHARGE SUMMARY ---
ADMISSION DATE: 08/20/2019 DISCHARGE DATE: 09/02/2019 HISTORY AND HOSPITAL COURSE: Ms. Lawton is a 69-year-old who presented on 08/20/2019, and hope to discharge on 09/02/2019. She presented with left-sided weakness. She has a history of hypertension. Presented to the hospital with left-sided weakness of recent onset. The patient describes having slurred speech and dizziness as well as headaches. The patient also had a history of seizure activity prior to presentation. She is not exactly sure how long it has been going on, but she had a CT of her brain. It was unremarkable for any acute lesions. Past medical history of hypertension, systemic lupus erythematosus, and Sjogren's syndrome. The patient does smoke cigarettes. She was on morphine pain medicines as well as benzodiazepines. Admitted with suspected acute cerebrovascular accident, left hemiparesis. They obtained an MRI of the brain, MRA, and extensive chronic microvascular changes but no evidence of acute disease. Her MRA of the head showed no definite abnormality. Neck MRA, no definite abnormality. Cardiology was asked to see. History of hypertension, seizure disorder, complaining of left-sided weakness, felt like she had underlying hypertension, lupus, Sjogren's, chronic pain syndrome, history of hypertension. They recommended for her hypertension to continue on her acebutolol. She had a good response to IV captopril, and so wanted to start lisinopril. Neurology was asked to see. Dr. Comer evaluated. Recent-onset seizure disorder, appears to be focal onset within the right temporal head region. Imaging was negative. Keppra level had been sent, but appears that she has been taking her medications as prescribed. They increased the Keppra to 1 gram b.i.d., and continued carbamazepine, current dose. 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 I stopped her morphine, decreased her benzodiazepine. We did a chest CT on 08/21/2019, which showed mild pulmonary edema and bilateral pleural effusions. She seemed to wake up and be more alert. We did an aortic and renal ultrasound. No evidence of obstruction or mass. Nondiagnostic vascular study. Urology was asked to see for urinary retention, and he felt they could remove the Carter catheter. She had incontinence in the face of a history of urinary tract infections. Denies any retention prior to this episode. Removed the Carter, and she was voiding fine. She had some recurrent episodes of delirium. Dr. Morales was following as well. She seemed awake and alert and bright and attentive, and we were pursuing to go to rehab. We continued her on levetiracetam 1000 mg b.i.d. and carbamazepine. She showed improvement. She did have some confusion and sundowning and some agitation, which diminished, and she wanted to go to rehab, and felt like she was ready to go on 09/02/2019. DISCHARGE MEDICATIONS: Secretol 200 mg daily, Tylenol 650 mg p.o. every 6 hours p.r.n., Xanax 0.25 mg b.i.d. p.r.n. situational anxiety, aspirin 81 mg a day, Tegretol 300 mg b.i.d., vitamin B12 at 500 mcg p.o. daily, vitamin D 50,000 units p.o. I think once a month, Lexapro 10 mg p.o. every a.m. (that had been decreased from 20 mg), folic acid 1 mg a day, Neurontin had been diminished to 200 mg at 9 o'clock, 3 o'clock, and 9 o'clock p.m., Plaquenil 300 mg p.o. daily for her lupus, Keppra 1 gram p.o. b.i.d., Prinivil 10 mg daily, Protonix 40 mg daily. cc: Abdiel Tripathi MD
--- NOTE | 2019-09-02 16:43 | NEUROLOGY PROGRESS NOTE ---
DATE: 09/02/2019 SUBJECTIVE: No major overnight events. There has not been reported witnessed seizure activity recently. She is afebrile. OBJECTIVE: Blood pressure 149/72, pulse 73. Ms. Lawton is supine in bed. She is awake, alert, and oriented. Speech is fluent. Follows simple and complex commands. Left, right digit distinction preserved. She is appropriate and interactive and cooperative. Pupils are equal, round, and reactive. Gaze is conjugate. Ocular movements are intact. Face symmetric. She moved all limbs without obvious focal deficits. DIAGNOSTIC DATA: There are no labs today for review. A repeat EEG was performed on 08/30/2019 showing predominantly right hemisphere slowing and infrequent epileptiform discharges but no seizures. Her carbamazepine dose was to be increased. ASSESSMENT AND PLAN: Recent new onset focal seizures with presumed right hemisphere focus and of uncertain etiology. Continue current dose of Keppra. We will increase the carbamazepine to 300 mg p.o. 3 times a day. In the future we may need to consider repeating a contrasted MRI of the brain. Seizure precautions were discussed with the patient and we also discussed the driving laws of [place]. She should not be driving or operating heavy machinery. cc: Natali Comer MD
[2019-09-02] MEDS: XANAX PO PRN (20:12)
[2019-09-02] MEDS: ROCEPHIN 1 GM in NS 50 ML IV SCH (20:12)
[2019-09-02] MEDS ORDERED: TEGRETOL PO SCH (21:00)
[2019-09-03] MEDS: PROTONIX PO SCH (06:08)
[2019-09-03 08:00] VITALS: BP 171/82
[2019-09-03] MEDS: LOVENOX SUBQ SCH (08:53)
[2019-09-03] MEDS: PRINIVIL PO SCH (08:54)
[2019-09-03] MEDS: KEPPRA PO SCH (08:54)
[2019-09-03] MEDS: SECTRAL PO SCH (08:54)
[2019-09-03] MEDS: PLAQUENIL PO SCH (08:54)
[2019-09-03] MEDS: VITAMIN B-12 PO SCH (08:54)
[2019-09-03] MEDS: LEXAPRO PO SCH (08:54)
[2019-09-03] MEDS: VITAMIN D PO SCH (08:54)
[2019-09-03] MEDS: FOLIC ACID PO SCH (08:54)
[2019-09-03] MEDS: NEURONTIN PO SCH (08:54)
[2019-09-03] MEDS: XANAX PO PRN (08:55)
[2019-09-03] MEDS: ASPIRIN EC PO SCH (08:55)
[2019-09-03] MEDS: TEGRETOL PO SCH (08:55)
[2019-09-03] MEDS: TYLENOL PO PRN (11:33)
== END 2019-09-03 13:37 | DRG 100 ==
LOC: ED 16:07 → EDIPHOLD 22:42 → SUATTDRO 22:42 → ICU 08-21 10:06 → 2N 08-22 15:21 → 3N 08-30 18:17
PROVIDERS: ATTEND Emergency Medicine

== ENCOUNTER 2019-11-20 20:59 | Inpatient (IN) ==
[2019-11-20] MEDS ORDERED: NS 1,000 ML IV PRN (21:58)
--- NOTE | 2019-11-20 22:11 | Diag Imaging Result Doc PS360 ---
EXAM: CHEST-PORTABLE HISTORY: stroke like symptoms TECHNIQUE: Single view COMPARISON: 08/29/2019 FINDINGS: The lungs are well expanded. The heart is enlarged. The vessels are not distended. There are no infiltrates. No effusion identified. IMPRESSION: Cardiomegaly Electronically signed by Cl Michael 11/20/2019 10:09 PM
[2019-11-20 22:14] LABS: BASO# 0.02 X1000 (0.0-0.2); BASO% 0.3 % (0.0-0.8); EOS# 0.21 X1000 (0.0-0.7); EOS% 3.3 % (0.0-10.0); HEMATOCRIT 37.4 % (37.0-47.0); HEMOGLOBIN 11.9 g/dL (12.0-16.0); IMM GRAN# 0.02 X1000 (0.0-0.04); IMM GRAN% 0.3 % (0.0-0.5); LYMPH# 1.78 X1000 (1.2-3.4); LYMPH% 28.3 % (20.5-51.1); MCH 33.8 PG (27-31); MCHC 31.8 g/dL (33-37); MCV 106.3 FL (81-99); MONO% 9.5 % (1.7-9.3); MPV 10.6 FL (7.4-10.4); NEUT# 3.67 X1000 (1.4-6.5); NEUT% 58.3 % (42.2-75.2); PLT 197 X1000 (130-400); RBC 3.52 XMIL (4.2-5.4); RDW 12.8 % (11.5-14.5)
[2019-11-20 22:34] LABS: AGAP 9; BUN 24 mg/dL (8-22); CHLORIDE 101 mmol/L (98-107); GLUCOSE 99 mg/dL (70-104); POTASSIUM 5.9 mmol/L (3.5-5.1); SODIUM 137 mmol/L (136-145); TCO2 27 mmol/L (25-35)
[2019-11-20 22:35] LABS: ALB/GLOB RATIO 1.6; ALBUMIN 3.7 g/dL (3.5-5.0); ALKALINE PHOSPHATASE 109 U/L (32-104); CALCIUM 8.2 mg/dL (8.8-10.2); COSMO 278; CREATININE 0.7 mg/dL (0.5-0.9); ESTIMATED GFR > 60; GOT 28 U/L (10-30); GPT 16 U/L (10-36); TOTAL BILIRUBIN < 0.15 mg/dL (0.20-1.00)
[2019-11-20 23:23] LABS: URINE SOURCE CATH
--- NOTE | 2019-11-20 23:44 | EKG Report ---
Test Performed on : 11/20/2019 9:14:03 PM Test Reason : Stroke like symptoms Blood Pressure : / mmHG Vent. Rate : 063 BPM Atrial Rate : 063 BPM P-R Int : 182 ms QRS Dur : 090 ms QT Int : 424 ms P-R-T Axes : 007 005 025 degrees QTc Int : 433 ms Normal sinus rhythm. Normal ECG When compared with ECG of 17-NOV-2019 17:40, (Unconfirmed) T wave inversion no longer evident in Lateral leads Unconfirmed Result
[2019-11-20 23:49] LABS: UR AMPHETAMINES QUAL NONE DETECTED (NONE DETECT); UR BARBITUATES QUAL NONE DETECTED (NONE DETECT); UR BENZODIAZEPIN QUAL NONE DETECTED (NONE DETECT); UR CANNABINOIDS QUAL NONE DETECTED (NONE DETECT); UR COCAINE QUAL NONE DETECTED (NONE DETECT); UR METHADONE QUAL NONE DETECTED (NONE DETECT); UR OPIATES QUAL PRESUMPTIVE POSITIVE (NONE DETECT); UR OXYCODONE QUAL NONE DETECTED (NONE DETECT); UR PCP QUAL NONE DETECTED (NONE DETECT)
[2019-11-20] MEDS ORDERED: NARCAN IV ONE (23:57)
[2019-11-20 23:58] LABS: BILIRUBIN URINE NEGATIVE (NEGATIVE); BLOOD URINE NEGATIVE (NEGATIVE); COLOR YELLOW; GLUCOSE URINE NEGATIVE (NEGATIVE); KETONE URINE NEGATIVE (NEGATIVE); LEUKOCYTES URINE NEGATIVE (NEGATIVE); NITRITE URINE NEGATIVE (NEGATIVE); PROTEIN URINE 50 mg/dL (NEGATIVE); TURBIDITY URINE CLEAR (CLEAR); UROBILINOGEN URINE NORMAL (NORMAL)
[2019-11-21 00:01] LABS: UR EPITHELIAL CELLS <10 /HPF (<10); URINE BACTERIA NEGATIVE /HPF; URINE RBC <10 /HPF (<10); URINE WBC <10 /HPF (<10)
[2019-11-21] MEDS ORDERED: KAYEXALATE PO ONE (00:04)
--- NOTE | 2019-11-21 00:11 | PROVIDER DOCUMENTATION ---
This chart was entered by Katrina Smalls Scribe, acting as scribe for Leo Mora MD. HPI-General Adult - General Chief Complaint: Weakness Stated Complaint: weakness Time Seen by Provider: 11/20/19 21:05 Source: patient, EMS Allergies/Adverse Reactions: Patient Allergies Allergy/AdvReac Type Severity Reaction Status Date / Time codeine Allergy Unknown Verified 11/17/19 14:55 STERIODS Allergy Unknown Uncoded 11/17/19 14:55 Home Medications: Home Medication List Medication Instructions Recorded Confirmed Last Taken Type Cholecalciferol (Vitamin D3) 50,000 unit PO DIRECTED 08/20/19 08/20/19 Unknown History [Vitamin D3] Hydroxychloroquine [Plaquenil] 1.5 tab PO DAILY 08/20/19 08/20/19 08/20/19 08:00 History Pantoprazole Sodium [Protonix] 40 mg PO DAILY 08/20/19 08/20/19 Unknown History Acebutolol [Sectral] 200 mg PO DAILY cap 09/02/19 Unknown Rx Acetaminophen [Tylenol] 650 mg PO Q6H PRN PRN tab 09/02/19 Unknown Rx Aspirin EC 81 mg PO DAILY tab 09/02/19 Unknown Rx Cyanocobalamin [Vitamin B-12] 500 microgm PO DAILY tab 09/02/19 Unknown Rx Escitalopram [Lexapro] 10 mg PO QAM tab 09/02/19 Unknown Rx Folic Acid 1 mg PO DAILY tab 09/02/19 Unknown Rx Gabapentin [Neurontin] 200 mg PO 0900,1500,2100 cap 09/02/19 Unknown Rx LISINOpril [Prinivil] 10 mg PO DAILY tab 09/02/19 Unknown Rx Levetiracetam [Keppra] 1,000 mg PO BID tab 09/02/19 Unknown Rx Carbamazepine [Tegretol] 300 mg PO TID 30 Days #90 tab 09/03/19 Unknown Rx Hydrocodone/APAP 5 mg/325 mg 1 ea PO Q6H PRN PRN #14 tab 11/17/19 Unknown Rx [[place]-5] - History of Present Illness -Gen Adult Nature of Presenting Problems: [id number] presents to ED by EMS cc generalized weakness and AMS according to EMS. She was seen in ED 11/17/2019 for fracture to left hand after a fall. Pt is poor hx, sleepy but oriented to person and place upon exam. She has hx of HTN, demen tia and falls. Similar Symptoms Previously?: No Recently seen or treated by another doctor?: Yes (seen in ED 11/17/2019) Review of Systems - Adult - REVIEW OF SYSTEMS - ADULT ROS:: ROS per EMS Constitutional: reports: see HPI. denies: chills, fever, fatique Eyes: reports: no symptoms reported Ears, Nose, Mouth & Throat: reports: no symptoms reported Cardiovascular: reports: no symptoms reported Respiratory: reports: no symptoms reported Gastrointestinal: reports: no symptoms reported Genitourinary: reports: no symptoms reported Musculoskeletal: reports: no symptoms reported Integumentary: reports: no symptoms reported Neurological: reports: see HPI, other (AMS) Psychiatric: reports: no symptoms reported Endocrine: reports: no symptoms reported Hematologic/Lymphatic: reports: no symptoms reported Allergic/Immunologic: reports: no symptoms reported All Other Systems: Reviewed and Negative Past History - Adult - PAST MEDICAL HISTORY-ADULT Review of Records: reports: Old Records Reviewed, Nursing Assessment Review, Medications Reviewed, Social history reviewed & non-contributory. Major Childhood Illnesses: reports: denies history Cardiovascular: reports: HTN Respiratory: reports: denies history Gastrointestinal: reports: denies history Obstetrical/Gynecological: reports: denies history Genitourinary: reports: denies history Musculoskeletal: reports: denies history Neurological: reports: stroke deficits Endocrine/Immune: reports: denies history Other Conditions: reports: denies history - PRIOR SURGERIES/PROCEDURES Surgical/Procedure History: reports: reviewed, not pertinent - IMMUNIZATION STATUS Childhood Immunizations: See Nurse Assessment Flu Vaccine: See Nurse Assessment - FAMILY HISTORY Family History: reviewed, not pertinent Physical Exam-General - PHYSICAL EXAM-ADULT Initial Vital Signs Reviewed: Yes - CONSTITUTIONAL General Appearance: no apparent distress, slow to respond. negative: anxious - EYES Eyes: PERRL/EOMI, pink conjunctivae. negative: photophobia - HEAD, EARS, NOSE, MOUTH & THROAT HENMT: normocephalic/atraumatic, moist mucous membranes. negative: angioedema - NECK Neck: supple, normal inspection. negative: C-spine tenderness - RESPIRATORY Respiratory: chest non-tender, lungs clear, normal breath sounds. negative: rhonchi, wheezing - CARDIOVASCULAR Cardiovascular: normal peripheral pulses, regular rate, rhythm, no edema, no murmur. negative: bradycardia, tachycardia - GASTROINTESTINAL (ABDOMEN) Abdominal Exam: normal bowel sounds, non tender, soft. negative: guarding, rebound - LYMPHATIC Lymphatic: no adenopathy. negative: enlargement - MUSCULOSKELETAL Extremity: normal inspection, normal capillary refill, other (slight bruising to left fingers and a cast on left arm from previous injury) - SKIN Integumentary: normal color. negative: diaphoresis, rash - PSYCHIATRIC Psych/Mental Status: negative: anxious Progress - PLAN OF CARE/RESULTS Progress/Plan/Lab Results: Vital Signs - 8 hr 11/20/19 21:17 Temperature 98.0 F Pulse Rate 65 Respiratory Rate 18 Blood Pressure 142/82 O2 Sat by Pulse Oximetry 98 Orders Category Date Time Status Cardiac Monitoring DIRECTED Care 11/20/19 21:58 Active Finger Stick Blood Sugar (ED) DIRECTED Care 11/20/19 21:58 Active Misc. NRSG Communication Order DIRECTED Care 11/20/19 21:58 Active Oxygen Therapy- ED Nursing DIRECTED Care 11/20/19 21:58 Active Saline Loc NOW Care 11/20/19 21:58 Active CHEST-PORTABLE [RAD] Stat Exams 11/20/19 21:[address] HEAD W/O CONTRAST [CT] Stat Exams 11/20/19 21:58 Ordered CBC WITH ELECTRONIC DIFF [HEME] Stat Lab 11/20/19 22:04 Ordered COMPREHENSIVE METABOLIC PANEL [CHEM] Stat Lab 11/20/19 22:04 Ordered PROTIME WITH INR [COAG] Stat Lab 11/20/19 22:04 Ordered PTT [COAG] Stat Lab 11/20/19 22:04 Ordered TROPONIN T HIGH SENSITIVITY Stat Lab 11/20/19 22:04 Ordered URINALYSIS W/POSS RFLX CULT [URINALYSIS] Stat Lab 11/20/19 21:58 Uncollected URINE DRUG SCREEN Stat Lab 11/20/19 21:58 Uncollected 0.9% Sodium Chloride Inj [Ns] 1,000 ml Med 11/20/19 21:58 Active IV 125 mls/hr EKG [EKG] Stat Ther 11/20/19 21:58 Ordered Result Diagrams: 11/20/19 21:25 11/20/19 21:25 - EKG 1 Time of EKG reading by physician:: 21:14 EKG Read and Signed by:: Leo Mora EKG Interpretation (*Must complete 3 of following elements*): Normal Rate: 63 Rhythm: NSR QRS: normal UT Interval: normal ST Wave: normal - CONSULTS/PCP/HOSPITALIST Notification #1 *Consult/PCP/Hospitalist*: Dr Murphy Time Discussed: 00:09 Consult Disposition: Admit Departure - Departure Date of Disposition Decision: 11/20/19 Time of Disposition Decision: 00:08 DIAGNOSIS: Altered mental status, Hyperkalemia Disposition: ADMITTED INPATIENT 09 Certified Medical Emergency: Emergent Condition: Fair Referrals and Follow-Ups: None,PCP [Primary Care Provider] - - Critical Care Note This patient required my direct & personal management of CC.: No Attestation - Physician/ TESFAYE Attestation Patient care was provided by Advanced Practice Provider:: No The physician spent face to face time with patient:: Yes Advanced Practice Provider documentation review:: Supervising physician onsite and consulted in the evaluation and care of this patient. The physician did have a face to face encounter with the patient. This chart was documented by the indicated scribe, (Katrina Smalls Scribe) and accurately reflects the services I performed and decisions made by me, Leo Mora MD, as attested by the provider's signature.
[2019-11-21 00:41] LABS: INR 0.92; PROTIME 12.5 Seconds (11.0-16.0); PTT 21.9 Seconds (22.3-41.8)
--- NOTE | 2019-11-21 02:22 | HISTORY AND PHYSICAL ---
PRIMARY CARE PROVIDER: Unknown. CHIEF COMPLAINT: Altered mental status. HISTORY OF PRESENTING ILLNESS: A 69-year-old female with a history of hypertension, Sjogren syndrome, lupus, seizure disorder, and vascular dementia, was brought to the emergency department due to patient having worsening confusion and generalized weakness. She was seen in the ED, she was moderately confused. She kept on repeating certain words and seemed somewhat sleepy. The patient is a poor historian due to her present condition and most of the history is obtained from the ER charting and other records. However, at time of my examination, she did deny any headache, fever, chills, chest pain, or shortness of breath. PAST MEDICAL HISTORY: Includes hypertension, seizures, Sjogren syndrome, lupus, dementia. PAST SURGICAL HISTORY: Cholecystectomy, tonsillectomy, hysterectomy, right knee surgery, recent fracture to the left hand and it is in a splint. ALLERGIES: Codeine. CURRENT MEDICATIONS: She does not recall and nursing staff will reconcile. SOCIAL HISTORY: She smokes cigarettes daily. No history of alcohol or illicit drug use. FAMILY HISTORY: No history of coronary artery disease. REVIEW OF SYSTEMS: Limited, as in HPI. PHYSICAL EXAMINATION: GENERAL: The patient is mildly confused, however, she is without any respiratory distress. VITAL SIGNS: Temperature 98 degrees, pulse 65, respiration 18, blood pressure 142/82. HEENT: Atraumatic, normocephalic. Extraocular movements intact. PERRLA. NECK: No masses. CHEST: Clear to auscultation. CARDIOVASCULAR: Regular rate and rhythm. ABDOMEN: Soft, positive bowel sounds. EXTREMITIES: No edema. NEUROLOGIC: She is awake and arousable, she is moderately confused. GENITOURINARY: No bladder distention. SKIN: Warm. LABORATORIES AND STUDIES: UA is negative. WBC 6.30, hemoglobin 11.9, hematocrit 37.4, platelets 197,000. Sodium 137, potassium 5.9, chloride 101, CO2 is 27, BUN is 24, creatinine 0.7. Glucose is 99. CT of the head was unremarkable. ASSESSMENT: A 69-year-old female with a history of hypertension, Sjogren's, lupus, seizures, and dementia was brought to the emergency department due to patient having worsening confusion. She was seen in the ED and, due to her presenting symptoms, she will require admission for further management. 1. Altered mental status multifactorial. 2. Seizure disorder. 3. Vascular dementia. 4. Hypertension. PLAN: 1. We will admit patient to PVC. 2. Continue with neuro checks. 3. Consult Neurology. 4. Put patient on seizure precautions. 5. Start patient on IV Keppra. 6. We will monitor blood pressure closely. 7. Put patient on DVT prophylaxis, with SCDs. 8. We will continue to follow and reassess, make further recommendation based on patient's clinical course. cc: Cruz Murphy MD
[2019-11-21] MEDS: KEPPRA 500 MG in NS 100 ML IV SCH ×2 (03:06→14:11)
[2019-11-21] MEDS: NS 1,000 ML IV SCH ×3 (03:07→21:48)
--- NOTE | 2019-11-21 06:32 | Diag Imaging Result Doc PS360 ---
EXAM: CT HEAD W/O CONTRAST HISTORY: stroke like symptoms TECHNIQUE: CT head without contrast COMPARISON: 11/17/2019 FINDINGS: No parenchymal hemorrhage. No epidural or subdural hematoma. No subarachnoid hemorrhage. There is mild atrophy with chronic microvascular ischemic changes. No mass identified on this noncontrasted exam. No hydrocephalus. No sinus opacification. IMPRESSION: 1.No hemorrhage 2.Atrophy with chronic ischemic changes 3.A preliminary report was given at 11:01 PM on 11/20/2019 This exam was performed using automated exposure control, adjustment of mA or kV according to patient size, and/or use of iterative reconstruction technique. Electronically signed by Cl Michael 11/21/2019 6:30 AM
[2019-11-21] MEDS: ASPIRIN EC PO SCH (08:15)
--- NOTE | 2019-11-21 10:57 | NEUROLOGY CONSULTATION ---
DATE: 11/21/2019 LOCATION: Room 216. HISTORY OF PRESENT ILLNESS: Ms. Lawton is 69 years old, and she was admitted with reported increased confusion and weakness. I have reviewed the hospital notes. History from the patient is that she has felt a little bit weak all over. She reports this morning that she did not notice definite increased confusion. She reports that she fell out of bed several days ago and injured her left arm. She believes there is wrist fracture, which has been splinted. She reports no recent seizure, and she is adamant that seizure was not responsible for her recent fall. There is reported to be past history of hypertension, Sjogren's, lupus, dementia. She smokes cigarettes. She had evidence of right hemisphere focal seizures when hospitalized a few months ago. She has been treated with levetiracetam 1000 mg b.i.d., gabapentin 200 mg t.i.d., carbamazepine 300 mg t.i.d., clonazepam 0.5 mg b.i.d. Other [employer] active medicines on her home list include buspirone and memantine 5 mg b.i.d. Her urine drug screen was positive for opiates, and I do not see a prescription for that. She told me that there is a new prescription that she cannot name, but she does not think it is pain medicine. Although she is reported to take clonazepam 0.5 mg b.i.d., and she told me she is certain she gets that dose, supervised by son, her urine drug screen was negative for benzodiazepine on presentation this time. Lab showed potassium 5.9, calcium 8.2, nothing else really remarkable in the chemistry. Noncontrast CT of the head this admission shows generalized atrophy and typical white matter changes. On my view, there is no change compared to noncontrast CT done on 08/20/2019 during previous hospitalization. She has been afebrile. Systolic blood pressures have ranged 110s to 180s. Heart rate has ranged 50s to 60s. On exam, she is awake, alert, attentive. She is more bright than when I last saw her in the hospital a few months ago. She identified the hospital by name. She was oriented to place and time. I believe her recollection of recent events is not completely accurate. I did not test her cognitive function more thoroughly. She has good power in the right arm and in both legs. She had some voluntary guarding, reducing her effort with motor testing in the left arm. She did move the left fingers voluntarily. She reports symmetric pinprick appreciation over the fingers on the left and right. She did well with right [id number]. She was slow and awkward with left [id number], but there was no definite cerebellar deficit. Reflexes are absent at the ankles. Plantar response is silent bilaterally. She has full visual melo. Extraocular movements are full. Facial motility is diminished bilaterally, but symmetric. Tongue is midline. She can hear. Neck is supple. IMPRESSION: 1. Cognitive impairment, likely major neurocognitive disorder/dementia. She has memantine on board now, and if tolerated, that could be titrated. I do not know whether or not she has had previous trial with cholinesterase inhibitor. If not, that could be considered. 2. She had documented right hemisphere focal seizure in the hospital a few months ago. Her report is no recent seizures. She seems to be tolerating management with levetiracetam 1000 mg twice daily and carbamazepine 300 mg three times daily (although carbamazepine was added for management of dysesthesia, there is likely significant antiseizure benefit at this dose). I would continue current doses. Creatinine is normal, and we should not see problems with current levetiracetam dose. 3. Urine drug screen positive for opiate, but no definite opiate on home medication list. There was concern for opiate intoxication during last hospitalization. 4. Chronic clonazepam prescription, but negative urine drug screen for benzodiazepine on admission. When I talked with son while she was hospitalized a few months ago, there was history that she did occasionally make mistakes with her clonazepam, and she did occasionally run out. If she missed clonazepam doses recently, there may have been some benzodiazepine withdrawal present to account for some of her recent symptoms. 5. Reported recent increased confusion. I do not have a specific explanation. This is likely multifactorial with contributions from her baseline cognitive impairment and any superimposed toxic or metabolic problem. Lab work is not really remarkable. I have not personally verified her home medications. She has not had a dose of anything here that would likely be contributing to encephalopathy. I do not have any urgent suggestion. I would continue current levetiracetam and carbamazepine doses and follow clinically. If we see fluctuating level of alertness or consciousness, we can consider repeating her electroencephalogram. Thank you for asking Neurology to see Ms. Lawton. cc: MD GLENDA Anne III
[2019-11-21 11:11] LABS: URINE SOURCE CATH
[2019-11-21 11:31] LABS: BILIRUBIN URINE NEGATIVE (NEGATIVE); BLOOD URINE NEGATIVE (NEGATIVE); COLOR YELLOW; GLUCOSE URINE NEGATIVE (NEGATIVE); KETONE URINE NEGATIVE (NEGATIVE); LEUKOCYTES URINE NEGATIVE (NEGATIVE); NITRITE URINE NEGATIVE (NEGATIVE); PH URINE 7.5; PROTEIN URINE NEGATIVE (NEGATIVE); SP GRAVITY URINE 1.017; TURBIDITY URINE CLEAR (CLEAR); UR EPITHELIAL CELLS <10 /HPF (<10); URINE BACTERIA NEGATIVE /HPF; URINE RBC <10 /HPF (<10); URINE WBC <10 /HPF (<10); UROBILINOGEN URINE NORMAL (NORMAL)
--- NOTE | 2019-11-21 14:04 | PROGRESS NOTE ---
DATE: 11/21/2019 Ms. Lawton was admitted early this morning. This is a 69-year-old female with a history of hypertension, Sjogren's syndrome, systemic lupus erythematosus, seizure disorder, and vascular dementia. Was brought to the emergency department due to having worsening confusion, generalized weakness. She was seen in the emergency room. She was mildly confused. Kept repeating certain words. Seemed to be somewhat sleepy. The patient is a poor historian due to her present condition. Most of the history was obtained from the ER charts. PAST MEDICAL HISTORY: Hypertension, seizure, Sjogren's syndrome, systemic lupus erythematosus, and dementia. PAST SURGICAL HISTORY: Status post cholecystectomy, status post tonsillectomy, status post hysterectomy, status post right knee surgery, recent fracture of left hand which is in a splint. ALLERGIES: She is allergic to codeine. She presented and was admitted for altered mental status. Thought it was multifactorial. History of seizure disorder, history of vascular dementia, and hypertension. Dr. Morales has evaluated. PHYSICAL EXAMINATION: She remains afebrile, temperature 98.2 degrees, pulse 64, respirations 17, blood pressure 183/84. Pupils are equal and round. Lungs are clear in all lung melo. Cardiovascular Examination: Regular rhythm and rate without murmur or S3. Abdomen is soft. Skin is warm and dry. Urine output was 600 mL. ASSESSMENT AND PLAN: 1. Cognitive impairment, likely major neurocognitive disorder and dementia. She has memantine which is on board now. If tolerated, can be titrated. We do not know if she has had a previous trial with cholinesterase inhibitors. She appears to be a little better. She was sleeping. She was woken up and is requesting something to eat. 2. Documented right hemisphere focal seizure, in the hospital few months ago. Reports no recent seizures. She seems to be tolerating levetiracetam 1000 mg twice a day and carbamazepine 300 mg three times a day. Carbamazepine was added for management of dysesthesias and it is likely significant antiseizure benefit at this dose. 3. Urine drug screen positive for opiate and no definite opiate on her medication list. She may have been getting this for pain for her left wrist. 4. Chronic clonazepam prescription but negative urine drug screen for benzodiazepine. She may have run out or missed taking her doses so it could be an element of clonazepam withdrawal. 5. Recent report of increased confusion. This may be multifactorial. 6. Hypertension. REVIEW OF HER ORDERS: She is on aspirin 81 mg a day. Getting levetiracetam. She is getting 500 mg IV q.12 so that is decreased from the dose she was taking at home, aspirin 81 mg a day. She was given a dose of Narcan when she first came in to the emergency room. I will advance her diet and put her on a regular diet, see how we do. cc: Abdiel Tripathi MD
[2019-11-21] MEDS: TYLENOL PO PRN (19:41)
[2019-11-22] MEDS: KEPPRA 500 MG in NS 100 ML IV SCH (00:21)
[2019-11-22] MEDS: APRESOLINE IV PRN (01:53)
[2019-11-22 06:02] LABS: BASO# 0.02 X1000 (0.0-0.2); BASO% 0.2 % (0.0-0.8); EOS# 0.22 X1000 (0.0-0.7); EOS% 2.6 % (0.0-10.0); HEMATOCRIT 42.7 % (37.0-47.0); IMM GRAN# 0.02 X1000 (0.0-0.04); IMM GRAN% 0.2 % (0.0-0.5); LYMPH# 0.96 X1000 (1.2-3.4); LYMPH% 11.2 % (20.5-51.1); MCH 33.8 PG (27-31); MCHC 32.8 g/dL (33-37); MCV 103.1 FL (81-99); MONO# 0.79 X1000 (0.11-0.59); MONO% 9.2 % (1.7-9.3); MPV 10.7 FL (7.4-10.4); NEUT# 6.58 X1000 (1.4-6.5); NEUT% 76.6 % (42.2-75.2); PLT 200 X1000 (130-400); RBC 4.14 XMIL (4.2-5.4); RDW 12.6 % (11.5-14.5); WBC 8.59 X1000 (4.8-10.8)
[2019-11-22 06:29] LABS: AGAP 10; BUN 9 mg/dL (8-22); CALCIUM 8.9 mg/dL (8.8-10.2); CHLORIDE 103 mmol/L (98-107); COSMO 279; CREATININE 0.4 mg/dL (0.5-0.9); ESTIMATED GFR > 60; GLUCOSE 109 mg/dL (70-104); POTASSIUM 3.4 mmol/L (3.5-5.1); SODIUM 140 mmol/L (136-145); TCO2 27 mmol/L (25-35)
[2019-11-22] MEDS: ASPIRIN EC PO SCH (08:36)
[2019-11-22] MEDS: ZOFRAN IV PRN (09:26)
[2019-11-22] MEDS: TYLENOL PO PRN (11:19)
--- NOTE | 2019-11-22 13:33 | PROGRESS NOTE ---
DATE: 11/22/2019 SUBJECTIVE: Ms Lawton was awake today and she had not eaten much of her lunch. She said she had a little nausea and some dry heaves this morning. She felt like I had gotten together with her son and had tricked her and planned for her to be in the hospital and she wanted to know how she is going to be able to get out here. I had talked with the son yesterday and the [id number] and that they are taking care of her. She has had episodes of hallucination and confusion and she has been diagnosed with vascular dementia. Today she is awake. Yesterday she was pretty lethargic for most of the day and I did discuss I think we need to adjust medication and take away some of her medicines. OBJECTIVE: Vital signs: Today temperature 98.2 degrees, pulse 78, respirations 16, blood pressure had been running a little high, 155/75, 177/81, 191/78. Pupils are equal and round. Lungs are clear in all lung melo. Cardiovascular: Regular rhythm and rate without murmur or S3. Urine output was 6200 mL. ASSESSMENT AND PLAN: 1. Cognitive impairment, likely major neurocognitive disorder with dementia. She has memantine which is on board and we can titrate that up. 2. Documented right hemisphere focal seizure a few months ago and she was tolerating levetiracetam 1000 mg twice a day and carbamazepine 300 mg 3 times a day. Carbamazepine was added for management of dysesthesias. 3. Urine drug screen positive for opiates. 4. Chronic clonazepam prescription but a negative urine drug screen for benzodiazepine, so I am not sure she was taking that at home. 5. Episodes of confusion and delirium. 6. Hypertension. 7. We have cut her Keppra down to 500 mg twice a day and I am going to let her try some Seroquel. We will give her 50 mg at bedtime to start with and see if this will help some. cc: Abdiel Tripathi MD
[2019-11-22] MEDS: KEPPRA PO SCH ×2 (14:18→21:13)
--- NOTE | 2019-11-22 14:52 | NEUROLOGY PROGRESS NOTE ---
DATE: 11/22/2019 Ms Lawton reports no seizures. She provided history today that conflicts with what I had recorded in my note yesterday. She told me today that her chronic limb pain has been significantly improved in recent months and is not an issue today. She had been taking carbamazepine 300 mg t.i.d. at some point, but that has not been provided here, and she reports pain control continues improved. CBC and liver enzymes were unremarkable this admission, but i am not certain she has been taking carbamazepine recently. She told me today that she thinks she had stopped clonazepam a few months ago and that she was not taking it just before this admission. That is consistent with our admission urine drug screen negative for benzodiazepine. She reports today she has not been taking medicine to help memory, but I believe she has taken memantine. Her levetiracetam dose has been 1000 mg b.i.d. prior to admission. She believes that dose is correct and that corresponds to prior notes. levetiracetam dose here has been 500 mg b.i.d. I do not have any urgent suggestions. With seizure controlled on current regimen, we do not have to make any changes but we could empirically return levetiracetam to 1000 mg b.i.d. I would continue off of carbamazepine unless her dysesthesia becomes more prominent. I do not know whether or not she has had cholinesterase inhibitor trial. If not, that could be considered electively. Thanks for asking Neurology to see Ms. Lawton. cc: MD GLENDA Anne III
[2019-11-22] MEDS: SEROQUEL PO SCH (21:13)
[2019-11-23 06:24] LABS: AGAP 12; ALB/GLOB RATIO 1.3; ALBUMIN 3.9 g/dL (3.5-5.0); ALKALINE PHOSPHATASE 114 U/L (32-104); BUN 12 mg/dL (8-22); CALCIUM 9.3 mg/dL (8.8-10.2); CHLORIDE 96 mmol/L (98-107); COSMO 272; CREATININE 0.4 mg/dL (0.5-0.9); ESTIMATED GFR > 60; GLUCOSE 104 mg/dL (70-104); GOT 18 U/L (10-30); GPT 12 U/L (10-36); POTASSIUM 3.1 mmol/L (3.5-5.1); SODIUM 136 mmol/L (136-145); TCO2 28 mmol/L (25-35); TOTAL BILIRUBIN 0.52 mg/dL (0.20-1.00)
[2019-11-23] MEDS: ASPIRIN EC PO SCH (08:03)
[2019-11-23] MEDS: KEPPRA PO SCH ×2 (08:03→23:55)
[2019-11-23] MEDS: APRESOLINE IV PRN (08:35)
--- NOTE | 2019-11-23 13:13 | PROGRESS NOTE ---
DATE: 09/24/2019 Ms. Lawton is awake, alert, very pleasant. She had a pretty good night last night, really no complaints. OBJECTIVE: Vital Signs: Temp 97.9 degrees, pulse 107, respirations 17, blood pressure 141/59. HEENT: Pupils are equal and round. Lungs: Are clear in all lung melo. Cardiovascular: Regular rhythm and rate without murmur or S3. Abdomen: Is soft. Skin: Is warm and dry. Urine output is 2500 mL. Sodium 136, potassium 3.1, chloride 96, BUN 12, creatinine 0.4. ASSESSMENT AND PLAN: She presented with confusion. No reports of any recent seizures, taking carbamazepine 300 mg t.i.d. at some point. She stopped her clonazepam a few months ago. A drug screen was negative for benzodiazepines. She was on levetiracetam 1000 mg b.i.d. I had cut that down to 500 twice a day. I talked to family and they said that she was having episodes pretty frequently of confusion and hallucinations and so I will try and cut her medications down. I do not see any evidence of recent seizure relapse. So right now, I started her on a little bit of Seroquel 50 mg p.o. at bedtime. She is on Keppra 500 mg b.i.d. and really not taking any other medication. She looks very good today. She seems to be alert and awake and memory seems to be pretty good. No reports of hallucination and she is not as upset and agitated as yesterday. Yesterday, there was some paranoia of accusing me and her son of collaborating and putting her in the hospital and so I am pleased with her improvement. Hopefully, she can go home on Monday. We will continue her current medications. She still has some nausea. She is not eating real well, so we will see how we do with that. I probably ought to put her on some medicine for possible underlying gastritis, so what I will do is put her on some Nexium 40 mg daily p.o. cc: Abdiel Tripathi MD
[2019-11-23] MEDS: NEXIUM PACKET PO SCH (15:40)
[2019-11-23] MEDS: ZOFRAN IV PRN (17:28)
[2019-11-23] MEDS: SEROQUEL PO SCH (23:55)
[2019-11-24] MEDS: NEXIUM PACKET PO SCH (06:44)
[2019-11-24] MEDS: ASPIRIN EC PO SCH (09:13)
[2019-11-24] MEDS: KEPPRA PO SCH ×2 (09:13→20:50)
[2019-11-24] MEDS ORDERED: KLOR-CON PO ONE (14:45)
--- NOTE | 2019-11-24 15:02 | PROGRESS NOTE ---
DATE: 11/24/2019 SUBJECTIVE: Ms. Lawton is awake, alert, and pleasant. She understands the situation. She does not have much appetite but she is trying to eat a little bit. OBJECTIVE: Temperature 98.4 degrees, pulse 82, respirations 20, blood pressure 153/63. Pupils are equal and round. Lungs are clear in all lung melo. Cardiovascular Examination: Regular rhythm and rate without murmur or S3. Abdomen is soft. Skin is warm and dry. Urine output is 425 mL. ASSESSMENT AND PLAN: She presented with confusion. No sign of seizures. She had stopped her clonazepam a few months ago and she was taking carbamazepine 300 mg three times a day. She was taking levetiracetam 1000 mg twice a day. I would cut that down to 500 mg twice a day. Presently, I started her on some Seroquel 50 mg at bedtime, aspirin 81 mg a day, Nexium 40 mg a day, Keppra 500 mg twice a day. She looks like she is doing well. Hopefully can go home tomorrow. REVIEW OF LABS: Review of her lab again from the looked good. cc: Abdiel Tripathi MD
[2019-11-24] MEDS: SEROQUEL PO SCH (20:50)
[2019-11-25] MEDS: NEXIUM PACKET PO SCH (06:07)
[2019-11-25] MEDS: APRESOLINE IV PRN (06:53)
[2019-11-25] MEDS: ASPIRIN EC PO SCH (08:17)
[2019-11-25] MEDS: KEPPRA PO SCH (08:17)
[2019-11-25 08:22] VITALS: BP 166/66
--- NOTE | 2019-11-25 09:57 | DISCHARGE SUMMARY ---
ADMISSION DATE: 11/21/2019 DISCHARGE DATE: 11/25/2019 HISTORY OF PRESENT ILLNESS: She has no primary care physician. She came in with altered mental status. A 69-year-old female with a history of hypertension, history of Sjogren's syndrome, history of systemic lupus erythematosus, seizure disorder, vascular dementia. Brought to the emergency department due to having worsening confusion and general weakness. Seen in the emergency department. She was mildly confused, kept repeating certain words and seemed somewhat sleepy. The patient was a poor historian. HOSPITAL COURSE: Really, for the first 36 hours, was fairly lethargic and then woke up. She had some paranoid delusions. Porum like her son and I were colluding to try and put her in the hospital. Admitted with altered mental status, history of seizure disorder. Had a seizure a couple months before and put her on Keppra. History of vascular dementia, history of hypertension. When talking to the family, son said that she has had episodes weekly where she seems to be annoyed and confused, and even some hallucinations. I backed down on her Keppra to 500 mg daily and I stopped her Neurontin which she was getting 200 mg 3 times a day and Keppra was reduced from 1000 mg twice a day to 500 mg twice a day. I held the Namenda. She seemed to improve quite a bit and wanted to go home. I did put her on some Seroquel which seemed to help her sleep better and her mind seemed to be much calmer. No paranoid ideas, and very pleasant and cooperative. Discharge medications plan to be aspirin 81 mg a day, Nexium 40 mg a day, Keppra 500 mg a day, and Seroquel 50 mg at bedtime. She will go home. She stays with her son. Encouraged them to get a primary care physician as well. Neurology was asked to see. Dr. Lul Morales felt she had cognitive impairment, likely major neurocognitive disorder and dementia. She had tried some memantine. Not sure how well she was taking that. She had a recent right hemisphere focal seizure in the hospital a few months ago. Was put on Keppra and she was put on carbamazepine as well. I held the carbamazepine. Her drug screen was positive for opiate, so I am not sure if she is getting some pain medicines at home. She did not complain of pain while she was here. Urine drug screen positive for opiate. In the past, she has had a chronic clonazepam prescription so I am not sure if she is taking that. Her drug screen was negative for benzodiazepine, so I think she may have had some symptoms of withdrawal from that as well, but she was eating well, able to walk around, and oriented to time and place, and felt she could go home on 11/25/2019. cc: Abdiel Tripathi MD
[2019-11-25] MEDS: TYLENOL PO PRN (11:13)
--- NOTE | 2019-11-25 12:25 | NEUROLOGY PROGRESS NOTE ---
DATE: 11/25/2019 SUBJECTIVE: Ms. Lawton has not had a seizure. She told me she has no specific complaints today. OBJECTIVE: She is awake, alert, attentive and appropriate, all features improved compared to admission. I agree with plans for discharge with levetiracetam 500 mg b.i.d. (she seems more alert with levetiracetam dose reduced from 1000 mg b.i.d. on admission). Depending on her clinical course, she might resume memantine and she might have trial with cholinesterase inhibitor later as an outpatient. She has tolerated being without carbamazepine, and I would continue off that drug unless her dysesthesia returns. Thanks for asking Neurology to see Ms. Lawton. cc: Lul Morales III, MD MTDVasile
== END 2019-11-25 13:43 | disposition home health service (06) | DRG 884 ==
LOC: ED 20:59 → SUATTDRO 11-21 01:34 → 2N 11-21 01:34 → 3N 11-23 17:17
PROVIDERS: ATTEND Emergency Medicine